=== PATIENT | male | born 1940 | race Caucasian/White ===

== ENCOUNTER 2017-03-31 11:13 | Inpatient (IN) ==
--- NOTE | 2017-03-31 11:40 | Emergency Department Note ---
General Adult HPI - General Chief complaint: Weakness Stated complaint: Weight loss, fatigue, Nausea Time Seen by Provider: 03/31/17 11:19 Source: patient Mode of arrival: ambulatory Limitations: no limitations - History of Present Illness HPI Narrative: This patient has dementia and has been going downhill recently according to his son. His son moved back here from [place] to live with him. He did see Dr. Parker recently and had an abdominal CT scan that was unremarkable. Patient says she's had diarrhea for a month and has had 3 times this morning. We will try to collect a sample. Denies all other symptoms. He has blood pressure was a bit low here in the ER and his son doesn't think he's eating or drinking enough. - Related Data Home Medications Medication Instructions Recorded Confirmed cholecalciferol (vitamin D3) 1,000 1,000 unit PO QDAY cap 07/09/15 03/31/17 unit capsule cyanocobalamin (vit B-12) 1,000 1,000 mcg PO QDAY tab 07/09/15 03/31/17 mcg tablet diphenhydramine 25 mg capsule 50 mg PO QHS PRN cap 07/09/15 03/31/17 multivitamin tablet 1 tab PO QDAY tab 07/09/15 03/31/17 psyllium husk 3.4 gram/5.4 gram 1 packet PO PRN PRN 03/25/17 03/31/17 oral powder Donepezil [Aricept] 10 mg PO QAM 03/31/17 03/31/17 Resveratrol 200 mg PO HS 03/31/17 03/31/17 Tumeric 2 cap PO QAM 03/31/17 03/31/17 Previous Rx's Medication Instructions Recorded amlodipine 10 mg tablet 10 mg PO QPM #90 tab 12/18/16 atorvastatin 40 mg tablet 40 mg PO QDAY #90 tab 12/18/16 chlorthalidone 25 mg tablet 25 mg PO QDAY #90 tab 12/18/16 dabigatran etexilate 150 mg capsule 150 mg PO BID #90 cap 12/18/16 lisinopril 20 mg tablet 10 mg PO QDAY #90 tab 12/18/16 memantine 10 mg tablet 10 mg PO BID #180 tab 12/18/16 metoprolol tartrate 25 mg tablet 25 mg PO BID #180 tab 12/18/16 Allergies Allergy/AdvReac Type Severity Reaction Status Date / Time No Known Drug Allergies Allergy Verified 03/25/17 10:21 Review of Systems Constitutional: Denies: fever, chills Eyes: Denies: eye pain ENT ED: Denies: ear pain, throat pain Cardiovascular: Denies: chest pain, palpitations Respiratory: Denies: cough, dyspnea Gastrointestinal: Reports: nausea, vomiting, diarrhea. Denies: abdominal pain Genitourinary: Denies: urgency Musculoskeletal: Denies: back pain Integumentary: Denies: rash Past Medical History - Past Medical History Medical history: Reports: atrial fibrillation, CVA, dementia, hyperlipidemia, hypertension, other (myasthenia gravis) Physical Exam - General Limitations: no limitations General appearance: alert, in no apparent distress - Head Head exam: atraumatic - Eye Eye exam: Present: normal appearance - ENT ENT exam: normal exam - Neck Neck exam: Present: normal inspection - Chest Chest inspection: Present: normal inspection - Respiratory Respiratory exam: Present: normal lung sounds bilaterally - Cardiovascular Cardiovascular exam: Present: regular rate, normal rhythm, normal heart sounds - Abdominal Exam Abdominal exam: Present: soft. Absent: distention, tenderness, guarding - Neurological Exam Neurological exam: Present: alert - Psychiatric Psychiatric exam: Present: normal affect, normal mood - Skin Skin exam: Present: warm, dry, intact Course Vital Signs Temperature 97.5 F L 03/31/17 11:15 Pulse Rate 98 H 03/31/17 11:15 Respiratory Rate 20 03/31/17 11:15 Blood Pressure 81/46 03/31/17 11:15 Pulse Oximetry (%) 98 03/31/17 11:15 Temperature 97.5 F L 03/31/17 11:15 Pulse Rate 70 03/31/17 13:00 Respiratory Rate 23 03/31/17 13:00 Blood Pressure 106/52 03/31/17 13:00 Pulse Oximetry (%) 97 03/31/17 13:00 Medical Decision Making - [facility] Narrative Medical decision making narrative: This patient apparently suffered kidney injury due to his CT scan contrast yesterday. His creatinine has gone from 1.4-6.4. Dehydration probably has contributed to injury. He'll be admitted to telemetry Dr. Flynn with Dr. Lucas consulting, we will go ahead and give 80 mg of IV potassium at 10 mEq an hour - Lab Data Lab results reviewed: Yes I reviewed the patient's lab results. Result diagrams: 03/31/17 11:55 03/31/17 11:55 Lab Results 03/31/17 03/31/17 Range/Units 11:55 11:55 WBC 12.8 H (4.5-11.0) K/mcL RBC 5.36 (4.50-5.90) M/mcL Hgb 15.6 (13.5-16.5) g/dL Hct 47.0 (41.0-55.0) % MCV 87.7 (80.0-100.0) fL MCH 29.1 (26.0-34.0) pg MCHC 33.1 (31.0-36.0) g/dL RDW 15.6 H (11.5-14.5) % Plt Count 229 (140-440) K/mcL MPV 9.6 (7.4-10.4) fL Gran % 82.2 H (38.0-78.0) % Lymph % (Auto) 9.4 L (15.5-49.0) % Boyd % (Auto) 7.6 (1.0-12.0) % Eos % (Auto) 0.5 (0.0-7.0) % Baso % (Auto) 0.3 (0.0-2.0) % Gran # 10.5 H (1.8-8.0) K/mcL Lymph # 1.2 L (1.5-4.8) K/mcL Boyd # 1.0 H (0.1-0.9) K/mcL Eos # 0.1 (0.0-0.7) K/mcL Baso # 0 (0.0-0.3) K/mcL Sodium 140 (133-145) mmol/L Potassium 2.5 L* (3.3-5.1) mmol/L Chloride 97 (96-108) mmol/L Carbon Dioxide 19 L (22-30) mmol/L Anion Gap 24.0 H (8-16) BUN 69 H (8-23) mg/dl Creatinine 6.6 H* (0.7-1.2) mg/dl GFR Calculation 8 Glucose 101 (70-105) mg/dL Calcium 9.0 (8.6-10.4) mg/dl Total Bilirubin 0.4 (0.0-1.0) mg/dL AST 8 (0-37) U/l ALT 10 (0-40) U/l Alkaline Phosphatase 58 (39-117) U/L Total Protein 6.8 (5.9-8.4) gm/dL Albumin 4.1 (3.2-5.2) gm/dL Globulin 2.7 (2.2-3.7) gm/dL Albumin/Globulin Ratio 1.5 (1.0-2.3) Disposition Clinical Impression: Acute renal failure Disposition: Xfer As Inpt ([facility]) Condition: Fair Referrals: Amrit Parker MD [Primary Care Provider] - Time of Disposition: 14:25
[2017-03-31] MEDS ORDERED: 0.9 % SODIUM CHLORIDE 1,000 ML IV ONE ×2 (11:45→12:30)
[2017-03-31 12:18] LABS: Basophils # (Auto) 0 K/mcL (0.0-0.3); Basophils % (Auto) 0.3 % (0.0-2.0); Eosinophils # (Auto) 0.1 K/mcL (0.0-0.7); Eosinophils % (Auto) 0.5 % (0.0-7.0); Granulocytes % (Auto) 82.2 % (38.0-78.0); Lymphocytes # (Auto) 1.2 K/mcL (1.5-4.8); Lymphocytes % (Auto) 9.4 % (15.5-49.0); Mean Cell Volume 87.7 fL (80.0-100.0); Mean Corpuscular HGB Conc 33.1 g/dL (31.0-36.0); Mean Corpuscular Hemoglobin 29.1 pg (26.0-34.0); Monocytes % (Auto) 7.6 % (1.0-12.0); Platelet Count 229 K/mcL (140-440); RBC 5.36 M/mcL (4.50-5.90); Red Cell Distribution Width 15.6 % (11.5-14.5)
[2017-03-31 13:22] LABS: ALT/SGPT 10 U/l (0-40); Albumin 4.1 gm/dL (3.2-5.2); Albumin/Globulin Ratio 1.5 (1.0-2.3); Alkaline Phosphatase 58 U/L (39-117); Blood Urea Nitrogen 69 mg/dl (8-23)
[2017-03-31] MEDS ORDERED: POTASSIUM CHLORIDE 80 MEQ in DEXTROSE 5% IN WATER 1,000 ML IV ONE (14:20)
[2017-03-31] MEDS ORDERED: 0.9 % SODIUM CHLORIDE 1,000 ML IV SCH (15:15)
[2017-03-31] MEDS ORDERED: ACETAMINOPHEN 1,000 MG/100 ML BOTTLE IV PRN (15:55)
[2017-03-31] MEDS ORDERED: POTASSIUM CHLORIDE 40 MEQ in DEXTROSE 5% IN WATER 500 ML IV PRN (15:55)
[2017-03-31] MEDS ORDERED: ACETAMINOPHEN 325 MG TABLET PO PRN (15:55)
[2017-03-31] MEDS ORDERED: LACTATED RINGERS 1,000 ML IV SCH (15:55)
[2017-03-31] MEDS ORDERED: POTASSIUM CHLORIDE 20 MEQ PACKET PO PRN (15:55)
[2017-03-31] MEDS ORDERED: ONDANSETRON 4 MG/2 ML VIAL IV PRN (15:55)
--- NOTE | 2017-03-31 17:43 | Nephrology Consult Note ---
History of Present Illness - Reason for Consult Patient information: Note initiated : 03/31/17 at 5:40 pm Service Date, if different from initiated Date: [] Patient: Aubrey Donohue a 76 y/o M admitted on 03/31/17 for Weight loss, fatigue , Nausea. Chief Complaint: [] Consult date: 03/31/17 acute renal failure Requesting physician: Alex Linares - Chief Complaint weakness - History of Present Illness Mr Donohue is a 76 y/o pleasant white male with PMH of HTN, dyslipidemia, CVA and other medical issues who is admitted with acute renal failure Patient was brought to the ED by his son today because the patient was getting weak, was having recurrent falls and also had vomiting 1-2 times since yesterday Patient has not been feeling well for the last one month or more. He has been having watery diarrhea 2-3 times or even more at times. He has lost more than 25 lbs in a month He saw his PCP for this and had CT abdomen with contrast done yesterday to r/o pancreatic cancer given his ongoing diarrhea. Patient also c/o having poor urinary stream and he does not recollect if he has had any urinary output since yesterday He denies abdominal pain, he denies nausea until yesterday He denies fever No c/o SOB, CP He denies using any NSAIDS he has had no recent travel, no use of antibiotics in the recent past His son was out of town for a month, his son thinks that the patient may not be eating appropriately or even eating stale food at times Review of Systems All systems PM: reviewed and no additional remarkable complaints except as stated (as in HPI) Past History Past medical history: HTN on amlodipine, metoprolol, lisinopril nd chlorthalidone dyslipidemia CVA has residual deficits from this in the form of some loss of vision and amnesia h/o myasthenia gravis s/p thymectomy patent foramen ovale Afib dementia Past surgical history: h/o thymectomy h/o implanted metallic device Past family history: mother had h/o malignant neoplasm in colon Past social history: smokes a little less than a pack of cigarettes every day drink occasionally no h/o drug abuse lives alone, his son lives less than a mile away Medications and Allergies Home Medications Medication Instructions Recorded Confirmed Type cholecalciferol (vitamin D3) 1,000 1,000 unit PO QDAY cap 07/09/15 03/31/17 History unit capsule cyanocobalamin (vit B-12) 1,000 1,000 mcg PO QDAY tab 07/09/15 03/31/17 History mcg tablet diphenhydramine 25 mg capsule 50 mg PO QHS PRN cap 07/09/15 03/31/17 History multivitamin tablet 1 tab PO QDAY tab 07/09/15 03/31/17 History amlodipine 10 mg tablet 10 mg PO QPM #90 tab 12/18/16 03/31/17 Rx atorvastatin 40 mg tablet 40 mg PO QDAY #90 tab 12/18/16 03/31/17 Rx chlorthalidone 25 mg tablet 25 mg PO QDAY #90 tab 12/18/16 03/31/17 Rx dabigatran etexilate 150 mg capsule 150 mg PO BID #90 cap 12/18/16 03/31/17 Rx lisinopril 20 mg tablet 10 mg PO QDAY #90 tab 12/18/16 03/31/17 Rx memantine 10 mg tablet 10 mg PO BID #180 tab 12/18/16 03/31/17 Rx metoprolol tartrate 25 mg tablet 25 mg PO BID #180 tab 12/18/16 03/31/17 Rx psyllium husk 3.4 gram/5.4 gram 1 packet PO PRN PRN 03/25/17 03/31/17 History oral powder Donepezil [Aricept] 10 mg PO QAM 03/31/17 03/31/17 History Potassium Chloride [Klor-Con 10] 10 meq PO DAILY 03/31/17 03/31/17 History Resveratrol 200 mg PO HS 03/31/17 03/31/17 History Tumeric 2 cap PO QAM 03/31/17 03/31/17 History Allergies Allergy/AdvReac Type Severity Reaction Status Date / Time No Known Drug Allergies Allergy Verified 03/25/17 10:21 Exam - Vital Signs Vital signs: Temp Pulse Resp BP Pulse Ox 97.5 F L 72 18 119/60 97 03/31/17 11:15 03/31/17 15:31 03/31/17 15:31 03/31/17 15:31 03/31/17 15:31 - General Appearance General appearance: appears started age, chronically ill EENT: mucous membranes dry Neck: no JVD Respiratory: clear Cardiology: no rub, no edema, normal S1, normal S2 Gastrointestinal: no tenderness, no guarding Integumentary: no rash Neurologic: no asterixis, alert and oriented x3 Musculoskeletal: no erythema, no cyanosis Psychiatric: mood/affect appropriate Results - Lab Results 03/31/17 11:55 03/31/17 14:00 Most recent lab results Calcium 9.0 mg/dl (8.6-10.4) 03/31/17 11:55 Assessment and Plan (1) Acute renal failure most recent s.creatinine is 6.6, BUN is 69 s.creatinine at baseline 1.0-1.1, was 1.4 on 03/11 and now 6.6 unclear if he had any urine output in ED, pt cannot tell He has mild acidosis and severe hypokalemia ct abdomen done yesterday revealed no renal issues Patient clinically is profoundly volume depleted with low normal BP (was hypotension at presentation) His MALENA is likely result of ATN from dehydration, hypotension use of ACEI, diuretics and contrast exposure yesterday Will continue with IVF, normal saline at 125cc/hour will replete potassium cautiously with careful monitoring until patient starts making urine as risk of hyperkalemia will hold off on all antihypertensive for now to keep MAP above 65 and preferably systolic above 110 will obtain urinary studies, hep panel, serum and urine UPEP will need work up for diarrhea as this seems to be underlying etiology for his current medical issues please place [place] cath for monitoring of urine output monitor i/o, renal function, vital signs closely recheck labs later tonight no urgent indication for dialysis will follow closely for the need of the same Discussed patient's renal issue with the pt and his son at length Thank you for giving me an opportunity to participate in Mr Donohue's medical care , appreciate it Status: Acute
--- NOTE | 2017-03-31 18:02 | Ultrasound Report ---
CLINICAL INFORMATION: Acute renal failure TECHNIQUE: Grayscale and color flow spectral imaging COMPARISON: Previous CT scan dated 03/30/2017 FINDINGS: Right kidney measures 10.3 x 6.8 x 6.3 cm. No solid or cystic mass. No hydronephrosis. No detectable calculi. Right renal cortex appears echogenic,. No focal abnormality. Left kidney measures 10.4 x 4.6 x 4.9 cm. Solid or cystic mass. No hydronephrosis. No calculi. Left renal cortex appears somewhat echogenic. Urinary bladder is not well visualized. Prevoid bladder volume measures 47 mL. Patient was unable to void. No detectable calculus. IMPRESSION: 1. No solid or cystic renal mass. No hydronephrosis 2. Renal parenchyma somewhat echogenic bilaterally. Interpreted and Authenticated by: Toni Lawrence 03/31/17
[2017-03-31] MEDS: 0.9 % SODIUM CHLORIDE 1,000 ML IV SCH (18:06)
--- NOTE | 2017-03-31 20:05 | History and Physical Report ---
DATE OF ADMISSION: 03/31/2017 DATE OF ADMISSION: 03/31/2017 REASON FOR ADMISSION: Persistent diarrhea and renal failure. PRIMARY CARE PHYSICIAN: Amrit Parker MD CONSULTING [employer] SALES REPRESENTATIVE: Shayy MAURO HISTORY OF CHIEF COMPLAINT: Aubrey is a 76-year-old who was brought into [facility] ER by his son after he has been experiencing relentless diarrhea over the last 5 weeks or so. The patient has lost a significant amount of weight, over 25 pounds. The patient endorses watery loose stools, multiple episodes, up to 5 a day, with significant associated dehydration, weakness, fatigue and loss of functionality. The patient denies abdominal pain, fever, cramps, bloody stool, change in stool caliber, associated mucus, sick contacts. He further denies community feast, travel to third world countries. He denies prior similar events. He also denies use of laxatives. In light of above symptoms, the patient was evaluated by primary care physician and underwent CT scan of the abdomen the day prior to admission. This did not have any significant findings. Initial workup in the ER was significant for creatinine over 6 and low potassium at 2.5. The patient was started on potassium replacement. Nephrology was consulted. Hospitalist Service was requested for admission. At the time of examination, the patient is alert, oriented. He is accompanied with his son who recently moved from [place] and is currently helping him out. The patient was able to answer most of the questions as above. He denies chest pain, headache, or photophobia. He denies new onset of joint pain, swelling, rash, hives. He denies heat or cold intolerance, tremors. He is recovering from CVA in 2014 and has minimal residual deficits. PAST MEDICAL HISTORY: 1. Hypertension. 2. Atrial fibrillation. 3. History of CVA, currently on anticoagulation on dabigatran. 4. Hyperlipidemia. 5. Dementia. CURRENT MEDICATIONS: Metoprolol 25. Memantine 10. Lisinopril 10. Dabigatran 150 twice daily. Chlorthalidone 25. Atorvastatin 40. Amlodipine 10. ALLERGIES: None significant. SOCIAL HISTORY: The patient lives fairly independently with his son who recently moved in town from [place]. Quit smoking a while ago. Occasional alcohol. No substance abuse. He is a retired qualified craft worker electrician. He is . FAMILY HISTORY: Nonrelevant given advanced age. PHYSICAL EXAMINATION: GENERAL: The patient is alert, feels fatigued, anxious. BMI 22.2, height 6 feet. VITAL SIGNS: Blood pressure, respiration rate 14, temperature 97.1, pulse 72, saturation 96 percent on room air. HEENT: Pupils symmetric. Oral cavity dry. No ear or nose discharge. Head is normocephalic and atraumatic. NECK: No lymphadenopathy. HEART: S1, S2, regular rhythm. No murmur appreciated. CHEST: Clear to auscultation. ABDOMEN: Soft, scaphoid. No organomegaly. Nontender. LOWER EXTREMITIES: No cyanosis or clubbing. No joint swelling. SKIN: No suspicious lesion. Dry skin with loss of skin turgor. PSYCHIATRIC: Alert and cooperative. NEURO: Nonfocal, moving all four extremities. LABS AND IMAGING: White count 12.8, hemoglobin 15.6, platelets 229. Sodium 140, potassium 2.5, creatinine 6.6, BUN 69. LFTs unremarkable. CT abdomen as of 03/30: Normal pancreas, multiple low density in the liver, otherwise nonsignificant findings. ASSESSMENT AND PLAN: A 76-year-old admitted with relentless diarrhea over the last 1 month, admitted with acute renal failure. 1. Acute renal failure, likely a combination of ischemic and toxic acute tubular necrosis. Management will be as per nephrology. 2. Critical hypokalemia. Continue replacement with serial BMP checks. 3. Diarrhea, appears chronic over the last 5 weeks. The patient will undergo multiple studies including stool cultures, along with stool osmolality. Will evaluate for malabsorption syndrome with fecal fat. Tissue transglutaminase to rule out celiac and further testing for infectious virus including norovirus. Clostridium difficile has been negative. 4. Other prior medical issues include history of hypertension. Hold ZOË inhibitor in light of renal failure. Continue amlodipine once systolics over 140. 5. History of atrial fibrillation, currently in sinus. 6. Anticoagulation for cerebrovascular accident prophylaxis. Hold dabigatran in light of renal failure. 7. Hyperlipidemia. Continue statin. 8. History of dementia. Continue donepezil. PLAN: 1. Admit as inpatient telemetry. 2. Nephrology consultation. 3. Crystalloids. 4. Stool studies as above. 5. Potassium replacement. AA:laura Job ID: [id number] Doc ID: [id number] Cruzito Apple MD [facility]
[2017-03-31] MEDS ORDERED: METOPROLOL TARTRATE 25 MG TABLET PO SCH (21:00)
[2017-03-31] MEDS ORDERED: amLODIPine 10 MG TABLET PO SCH (21:00)
[2017-03-31] MEDS ORDERED: DABIGATRAN ETEXILATE MESYLATE 150 MG CAPSULE PO SCH (21:00)
[2017-03-31] MEDS: MEMANTINE 10 MG TABLET PO SCH (21:05)
[2017-03-31 21:06] LABS: Ionized Calcium 1.06 mmol/L (1.16-1.32)
[2017-03-31] MEDS: SENNOSIDES/DOCUSATE SODIUM 1 TAB TABLET PO SCH (21:06)
[2017-03-31] MEDS: 0.9 % SODIUM CHLORIDE 10 ML SYRINGE IV SCH (21:07)
[2017-03-31 21:22] LABS: Blood Urea Nitrogen 62 mg/dl (8-23)
[2017-03-31] MEDS ORDERED: POTASSIUM CHLORIDE 20 MEQ TABLET PO ONE (22:02)
[2017-03-31] MEDS ORDERED: POTASSIUM CHLORIDE 20 MEQ PACKET ONE (22:10)
[2017-04-01 04:39] LABS: Mean Cell Volume 87.3 fL (80.0-100.0); Mean Corpuscular Hemoglobin 29.7 pg (26.0-34.0); Platelet Count 181 K/mcL (140-440); RBC 4.71 M/mcL (4.50-5.90); Red Cell Distribution Width 15.5 % (11.5-14.5)
[2017-04-01 04:42] LABS: ALT/SGPT 8 U/l (0-40); Albumin 3.3 gm/dL (3.2-5.2); Albumin/Globulin Ratio 1.4 (1.0-2.3); Alkaline Phosphatase 46 U/L (39-117); Bilirubin,Direct < 0.2 mg/dL (0.0-0.3); Blood Urea Nitrogen 54 mg/dl (8-23); Gamma Glutamyl Transpeptidase 15 U/L (8-61); Uric Acid 15.4 mg/dL (2.5-8.0)
[2017-04-01] MEDS ORDERED: POTASSIUM CHLORIDE 20 MEQ in DEXTROSE 5% IN WATER 250 ML IV ONE (05:00)
[2017-04-01] MEDS ORDERED: POTASSIUM CHLORIDE 20 MEQ/10 ML VIAL IV ONE (05:05)
[2017-04-01] MEDS: 0.9 % SODIUM CHLORIDE 10 ML SYRINGE IV SCH ×3 (05:14→21:03)
[2017-04-01 05:21] LABS: Acanthocytes FEW (NONE SEEN); Eosinophils % (Manual) 3 % (0-7); Lymphocytes % 17 % (15-49); Monocytes % (Manual) 10 % (1-12); Platelet Estimate NORMAL (NORMAL); RBC Morphology ABNORM (NORMAL); Segmented Neutrophils % 69 % (38-78)
[2017-04-01] MEDS: 0.9 % SODIUM CHLORIDE 1,000 ML IV SCH ×2 (07:19)
[2017-04-01] MEDS: MEMANTINE 10 MG TABLET PO SCH ×2 (08:16→21:02)
[2017-04-01] MEDS: ATORVASTATIN 20 MG TABLET PO SCH (08:16)
[2017-04-01] MEDS: DONEPEZIL 10 MG TABLET PO SCH (08:16)
[2017-04-01] MEDS: MULTIVIT,THER IRON,CA,FA & MIN 1 TABLET PO SCH (08:16)
[2017-04-01 10:28] LABS: Appearance,Urine HAZY; Bacteria,Urine 0 /hpf (0); Bilirubin,Urine NEG (NEG); Color,Urine YELLOW; Glucose,Urine (UA) NEGATIVE (NEG); Leukocyte Esterase,Urine NEG /uL (NEG); Mucus,Urine FEW /hpf (0); Nitrate,Urine NEG (NEG); Protein,Urine NEG (NEG); Specific Gravity,Urine 1.014 (1.000-1.035); Uric Acid Crystals,Urine FEW /hpf (0); Urine Blood 0.03 mg/dL (<0.03); Urine Granular Cast 1 /lpf (0); Urine Hyaline Cast 5 /lpf (0-2); Urine RBC 3 /hpf (0-1); Urine Squamous Epithelial Cell 0 /hpf (0-4); Urine WBC 1 /hpf (0-4); Urobilinogen,Urine NEG (NEG)
--- NOTE | 2017-04-01 10:29 | Internal Med Progress Note ---
Medical - PN: Subj Patient information: Note initiated : 04/01/17 at 10:25 am Service Date, if different from initiated Date: [] Patient: Aubrey Donohue 76 y/o M admitted on 03/31/17 for Weight Loss,Fatigue, Nausea/Renal Failure, Diarrhea. Chief Complaint: [] Interval history: 03/31- patient admitted with acute renal failure secondary to combination of volume depletion and contrast-induced nephropathy. Creatinine 6. 6 potassium 2.5. Admitted to telemetry. continue aggressive crystalloids and electrolyte replacement. Renal ultrasound pending. Nephrology consulted. 04/01- creatinine down from 6.6 to 3.5. Potassium improved 2.9. Good urine output over 1700 cc since admission. patient feels a lot better. Case discussed with nephrology and patient's primary care physician Dr. Amrit Baker. afebrile with stable hemodynamics. Extensive stool testing pending including fecal fat/transglutaminase antibody/osmolarity. patient will require outpatient colonoscopy. 3 episodes of loose stools since morning - Constitutional Vitals: Vital Signs Temp Pulse Resp BP Pulse Ox 96.8 F L 60 16 125/56 94 04/01/17 06:22 04/01/17 03:36 04/01/17 06:22 04/01/17 06:22 04/01/17 06:22 Period Temp Pulse Resp BP Sys/[place] Pulse Ox Last 24 Hr 96.8 F-97.6 F 60-75 14-18 104-125/54-63 94-97 Intake and Output 03/31/17 04/01/17 04/01/17 21:59 05:59 13:59 Intake Total 1558 / 1558 1215 / 1215 Output Total 250 / 250 1000 / 1000 525 / 525 Balance -250 / 90 558 / 558 690 / 690 Weight 164 lb 3.2 oz Intake & Output: Intake & Output 03/31/17 04/01/17 04/01/17 21:59 05:59 13:59 Intake Total 1558 / 1558 1215 / 1215 Output Total 250 / 250 1000 / 1000 525 / 525 Balance -250 / 90 558 / 558 690 / 690 Weight 164 lb 3.2 oz Intake: IV 1258 / 1258 915 / 915 Sodium Chloride 0.9% 1, 738 / 738 915 / 915 000 ml @ 125 mls/hr IV . Q8H [facility] Rx#:[id number] Potassium Chloride 40 Meq 520 / 520 In Dextrose 5% in Water 500 ml @ 130 mls/hr IV UD PRN Rx#:[id number] Oral 300 / 300 300 / 300 Output: Urine Catheter Amount 1000 / 1000 75 / 75 Void Amount 100 / 100 450 / 450 Stool 150 / 150 Other: Meal Breakfast Percent of Meal Consumed 100% # Bowel Movements 1 1 1 General appearance: cooperative, no acute distress Exam: alert oriented Minimal cognitive dextrose with thought block nonlabored breathing Foleys draining clear urine No anxiety Medical - PN: Obj Da - Labs CBC & Chem 7: 04/01/17 03:28 04/01/17 03:28 Labs: Abnormal Lab Results 04/01/17 04/01/17 03/31/17 03:28 03:28 20:15 WBC 11.1 H RDW 15.5 H RBC Morphology Abnorm A Acanthocytes (Spur) Few A RBC Fragments Few A Potassium 2.9 L* 2.7 L* Carbon Dioxide 19 L 17 L Anion Gap 20.0 H BUN 54 H 62 H Creatinine 3.5 H 5.2 H* Uric Acid 15.4 H Calcium 7.8 L Ionized Calcium Tia 1.06 L Total Protein 5.6 L Triglycerides 153 H Meds: Medications Acetaminophen (Tylenol) 650 mg PO Q4-6HP PRN PRN Reason: PAIN/FEVER > 101 Atorvastatin Calcium (Lipitor) 40 mg PO DAILY [facility] Last Admin: 04/01/17 08:16 Dose: 40 mg Donepezil HCl (Aricept) 10 mg PO QAM [facility] Last Admin: 04/01/17 08:16 Dose: 10 mg Potassium Chloride 40 meq/ (Dextrose) 520 mls @ 130 mls/hr IV UD PRN PRN Reason: K+ = or < 3.5 Last Infusion: 03/31/17 22:45 Dose: Infused Magnesium Sulfate (Magnesium Sulfate) 2 gm in 50 mls @ 50 mls/hr IV UD PRN PRN Reason: MG = or < 1.7 Acetaminophen (Ofirmev) 1,000 mg in 100 mls @ 200 mls/hr IV Q6HP PRN PRN Reason: PAIN/FEVER > 101 Sodium Chloride (Sodium Chloride 0.9%) 1,000 mls @ 125 mls/hr IV .Q8H [facility] Last Admin: 04/01/17 07:19 Dose: 125 mls/hr Iron Carb/Multivit/Metal Work Duct Installer/Folic Acid (Multivitamin W/Minerals) 1 tab PO DAILY [facility] Last Admin: 04/01/17 08:16 Dose: 1 tab Memantine (Namenda) 5 mg PO BID [facility] Last Admin: 04/01/17 08:16 Dose: 5 mg Ondansetron HCl (Zofran) 4 mg IV Q4-6HP PRN PRN Reason: Nausea And Vomiting Potassium Chloride (Klor-Con) 40 meq PO DAILYP PRN PRN Reason: K+ < 3.5 Senna/Docusate Sodium (Senna Plus Tablet) 1 tab PO HS [facility] Last Admin: 03/31/17 21:06 Dose: Not Given Sodium Chloride (Saline Flush) 10 ml IV Q8 [facility] Last Admin: 04/01/17 05:14 Dose: Not Given Medical - PN: A/P - Time Spent With Patient Total time spent is greater than 50% in coordination of care (as documented) at patient's floor/unit and/or counseling patient: 25 - 35 minutes (1) Acute renal failure Status: Acute Assessment and plan: * acute renal failure- combination of volume depletion/FRANCES leading to ischemic/ toxic ATN. Management per nephrology. Creatinine down from 6.6-3.5. Nonoliguric. Renal ultrasound no evidence of obstructive uropathy. Normal parenchyma. * critical hypokalemia- improving with replacement. Potassium 2.9. Continue telemetry monitoring * persistent diarrhea- evaluate for chronic diarrhea including secretory versus osmotic. * history of hypertension-continue amlodipine,metoprolol hold chlorthalidone/ ZOË inhibitor. * hyperlipemia and statin * History of dementia and donepezil * History of CVA - Held anticoagulation in light of renal failure. continue statin plan * Continue aggressive electrolyte replacement * hold Chlorthalidone/ZOË inhibitor * restart anticoagulation in 24 hours or once creatinine less than 2 * diarrhea workup * Colonoscopy Current Visit: Yes
[2017-04-01 13:29] LABS: Blood Urea Nitrogen 46 mg/dl (8-23)
--- NOTE | 2017-04-01 13:53 | Nephrology Progress Note ---
Subjective Patient information: Note initiated : 04/01/17 at 1:50 pm Service Date, if different from initiated Date: [] Patient: Aubrey Donohue 76 y/o M admitted on 03/31/17 for Weight Loss,Fatigue, Nausea/Renal Failure, Diarrhea. Chief Complaint: [diarrhea] Principal diagnosis: acute renal failure Interval history: Patient with no new complaints feels better still has diarrhea, not tolerating any po intake as has loose water stools every time he eats His urine output has improved with IV fluids and his renal function is improving He denies SOB, CP, dizziness He has no edema He has [place] cath now he remains hypokalemic Pertinent ROS: as above Objective - Vital Signs Vital signs: Vital Signs Temp Pulse Resp BP BP Pulse Ox 04/01/17 11:33 97.6 F 20 121/58 97 04/01/17 06:22 96.8 F L 16 125/56 94 04/01/17 03:36 97.6 F 60 14 118/63 96 04/01/17 00:00 97.6 F 63 14 105/56 94 03/31/17 20:00 97.6 F 65 16 119/54 97 03/31/17 15:55 97.1 F L 75 18 104/62 96 Intake and Output 03/31/17 04/01/17 04/01/17 21:59 05:59 13:59 Intake Total 1558 / 1558 1215 / 1215 Output Total 250 / 250 1000 / 1000 525 / 525 Balance -250 / 90 558 / 558 690 / 690 Intake: IV 1258 / 1258 915 / 915 Sodium Chloride 0.9% 1, 738 / 738 915 / 915 000 ml @ 125 mls/hr IV . Q8H [facility] Rx#:[id number] Potassium Chloride 40 Meq 520 / 520 In Dextrose 5% in Water 500 ml @ 130 mls/hr IV UD PRN Rx#:[id number] Oral 300 / 300 300 / 300 Output: Urine Catheter Amount 1000 / 1000 75 / 75 Void Amount 100 / 100 450 / 450 Stool 150 / 150 Other: Meal Breakfast Percent of Meal Consumed 100% # Bowel Movements 1 1 1 Weight 164 lb 3.2 oz 164 lb 3.2 oz Patient Weight 04/02/17 05:59 Weight 164 lb 3.2 oz Intake & Output: Intake & Output 03/31/17 04/01/17 04/01/17 21:59 05:59 13:59 Intake Total 1558 / 1558 1215 / 1215 Output Total 250 / 250 1000 / 1000 525 / 525 Balance -250 / 90 558 / 558 690 / 690 Weight 164 lb 3.2 oz 164 lb 3.2 oz Intake: IV 1258 / 1258 915 / 915 Sodium Chloride 0.9% 1, 738 / 738 915 / 915 000 ml @ 125 mls/hr IV . Q8H [facility] Rx#:[id number] Potassium Chloride 40 Meq 520 / 520 In Dextrose 5% in Water 500 ml @ 130 mls/hr IV UD PRN Rx#:[id number] Oral 300 / 300 300 / 300 Output: Urine Catheter Amount 1000 / 1000 75 / 75 Void Amount 100 / 100 450 / 450 Stool 150 / 150 Other: Meal Breakfast Percent of Meal Consumed 100% # Bowel Movements 1 1 1 - General Appearance General appearance: appears started age, frail EENT: mucous membranes moist Neck: no JVD Respiratory: clear Cardiology: no rub, normal S1, normal S2 Gastrointestinal: no tenderness, no guarding Integumentary: warm and dry Neurologic: alert and oriented x3 Musculoskeletal: no erythema, no cyanosis Psychiatric: mood/affect appropriate - Lab 04/01/17 03:28 04/01/17 11:20 Most recent lab results Calcium 7.9 mg/dl (8.6-10.4) L 04/01/17 11:20 Phosphorus 3.7 mg/dL (2.7-4.5) 04/01/17 03:28 Magnesium 2.0 mg/dL (1.6-2.5) 04/01/17 03:28 Assessment and Plan (1) Acute renal failure Patient with acute renal failure likely from ATN from severe dehydration, hypotension, use of ACEI and diuretics and also contrast exposure s.creatinine down to 2.5 UA with hyaline casts renal US with no obstruction good urinary output with improving renal function Hypokalemia severe from poor po intake, diarrhea and also renal loss as was on chlorthalidone cannot tolerate po potassium supplement patient getting continuous K replacement with careful monitoring of labs will continue with aggressive K replacement diarrhea: work up ongoing may need GI consult Will follow Thank you for giving me an opportunity to participate in Mr Donohue's medical care , appreciate it Status: Acute
[2017-04-01] MEDS ORDERED: POTASSIUM CHLORIDE 40 MEQ in 0.9 % SODIUM CHLORIDE 500 ML IV ONE (13:56)
[2017-04-01] MEDS: NACL 0.9% W/KCL 20MEQ 1,000 ML IV SCH ×2 (14:56→22:39)
[2017-04-01] MEDS: LOPERAMIDE 2 MG CAPSULE PO PRN ×2 (14:56→16:52)
[2017-04-01 19:20] LABS: Blood Urea Nitrogen 38 mg/dl (8-23)
[2017-04-01] MEDS: SENNOSIDES/DOCUSATE SODIUM 1 TAB TABLET PO SCH (21:03)
[2017-04-02] MEDS: 0.9 % SODIUM CHLORIDE 10 ML SYRINGE IV SCH ×2 (05:47→15:48)
[2017-04-02 05:48] LABS: Mean Cell Volume 88.2 fL (80.0-100.0); Mean Corpuscular HGB Conc 33.7 g/dL (31.0-36.0); Mean Corpuscular Hemoglobin 29.8 pg (26.0-34.0); Platelet Count 154 K/mcL (140-440); Red Cell Distribution Width 15.2 % (11.5-14.5)
[2017-04-02 06:09] LABS: ALT/SGPT 7 U/l (0-40); Albumin 3.2 gm/dL (3.2-5.2); Albumin/Globulin Ratio 1.5 (1.0-2.3); Alkaline Phosphatase 41 U/L (39-117); Bilirubin,Direct < 0.2 mg/dL (0.0-0.3); Blood Urea Nitrogen 27 mg/dl (8-23); Gamma Glutamyl Transpeptidase 13 U/L (8-61); Magnesium 1.6 mg/dL (1.6-2.5); Uric Acid 10.8 mg/dL (2.5-8.0)
[2017-04-02 06:35] LABS: Eosinophils % (Manual) 2 % (0-7); Lymphocytes % 13 % (15-49); Monocytes % (Manual) 7 % (1-12); Platelet Estimate NORMAL (NORMAL); RBC Morphology ABNORM (NORMAL); Segmented Neutrophils % 78 % (38-78)
[2017-04-02] MEDS ORDERED: POTASSIUM CHLORIDE 20 MEQ/10 ML VIAL IV ONE (06:38)
[2017-04-02] MEDS: NACL 0.9% W/KCL 20MEQ 1,000 ML IV SCH ×2 (07:03→16:47)
[2017-04-02] MEDS: ATORVASTATIN 20 MG TABLET PO SCH (08:32)
[2017-04-02] MEDS: MEMANTINE 10 MG TABLET PO SCH ×2 (08:35→22:37)
[2017-04-02] MEDS: DONEPEZIL 10 MG TABLET PO SCH (08:35)
[2017-04-02] MEDS: MULTIVIT,THER IRON,CA,FA & MIN 1 TABLET PO SCH (08:35)
[2017-04-02] MEDS: DABIGATRAN ETEXILATE MESYLATE 75 MG CAPSULE PO SCH ×2 (08:39→22:37)
[2017-04-02] MEDS ORDERED: POTASSIUM CHLORIDE 40 MEQ in DEXTROSE 5% IN WATER 500 ML IV PRN (09:26)
[2017-04-02] MEDS ORDERED: POTASSIUM CHLORIDE 20 MEQ in DEXTROSE 5% IN WATER 250 ML IV ONE (09:30)
[2017-04-02] MEDS ORDERED: MAGNESIUM SULFATE 2 GM/50 ML BAG IV PRN (10:42)
--- NOTE | 2017-04-02 10:43 | Internal Med Progress Note ---
Medical - PN: Subj Patient information: Note initiated : 04/02/17 at 10:41 am Service Date, if different from initiated Date: [] Patient: Aubrey Donohue 76 y/o M admitted on 03/31/17 for Weight Loss,Fatigue, Nausea/Renal Failure, Diarrhea. Chief Complaint: [] Interval history: 03/31- patient admitted with acute renal failure secondary to combination of volume depletion and contrast-induced nephropathy. Creatinine 6. 6 potassium 2.5. Admitted to telemetry. continue aggressive crystalloids and electrolyte replacement. Renal ultrasound pending. Nephrology consulted. 04/01- creatinine down from 6.6 to 3.5. Potassium improved 2.9. Good urine output over 1700 cc since admission. patient feels a lot better. Case discussed with nephrology and patient's primary care physician Dr. Amrit Baker. afebrile with stable hemodynamics. Extensive stool testing pending including fecal fat/transglutaminase antibody/osmolarity. patient will require outpatient colonoscopy. 3 episodes of loose stools since morning 04/02- creatinine 1.5. GI consult for colonoscopy. Potassium persistently low at 2.9 on replacement. Nephrology signing off. continue clears. Runs of V. tach last night. Continue telemetry monitoring. replace magnesium and oral potassium. - Constitutional Vitals: Vital Signs Temp Pulse Resp BP Pulse Ox 98.1 F 72 18 145/67 93 04/02/17 06:40 04/02/17 07:20 04/02/17 07:20 04/02/17 06:40 04/02/17 07:20 Period Temp Pulse Resp BP Sys/[place] Pulse Ox Last 24 Hr 97.6 F-98.5 F 65-72 17-20 118-145/58-67 91-99 Intake and Output 04/01/17 04/02/17 04/02/17 21:59 05:59 13:59 Intake Total 570 / 570 965 / 965 1120 / 1120 Output Total 425 / 425 1825 / 1825 775 / 775 Balance 145 / 145 -860 / -860 345 / 345 Weight 170 lb 8 oz Intake & Output: Intake & Output 04/01/17 04/02/17 04/02/17 21:59 05:59 13:59 Intake Total 570 / 570 965 / 965 1120 / 1120 Output Total 425 / 425 1825 / 1825 775 / 775 Balance 145 / 145 -860 / -860 345 / 345 Weight 170 lb 8 oz Intake: IV 965 / 965 1000 / 1000 NaCl 0.9% W/KCl 20Meq 965 / 965 1000 / 1000 1000ML 1,000 ml @ 125 mls /hr IV .Q8H [facility] Rx#: [id number] Oral 570 / 570 120 / 120 Output: Urine Catheter Amount 1825 / 1825 775 / 775 Void Amount 425 / 425 Other: Meal Dinner Breakfast Percent of Meal Consumed 75% 100% Feeding Ability Assist with Tray Set Up Independent # Bowel Movements 1 1 General appearance: cooperative, no acute distress Exam: anxious nonlabored breathing Foleys draining clear urine Nondistended Medical - PN: Obj Da - Labs CBC & Chem 7: 04/02/17 04:30 04/02/17 04:30 Labs: Abnormal Lab Results 04/02/17 04/02/17 04/01/17 04:30 04:30 18:30 WBC RBC 4.30 L Hgb 12.8 L Hct 38.0 L RDW 15.2 H Lymphocytes % 13 L RBC Morphology Abnorm A Acanthocytes (Spur) RBC Fragments Few A Potassium 2.9 L* 3.1 L Chloride 112 H 111 H Carbon Dioxide 19 L 20 L Anion Gap BUN 27 H 38 H Creatinine 1.5 H 1.7 H Glucose 137 H Uric Acid 10.8 H Calcium 7.8 L 7.9 L Ionized Calcium Tia Phosphorus 1.4 L Total Protein 5.4 L Total Protein (PEP) 5.2 L Triglycerides Urine Occult Blood Urine RBC Uric Acid Crystals Hyaline Casts Granular Casts 04/01/17 04/01/17 04/01/17 11:20 09:31 03:28 WBC RBC Hgb Hct RDW Lymphocytes % RBC Morphology Acanthocytes (Spur) RBC Fragments Potassium 2.7 L* 2.9 L* Chloride 111 H Carbon Dioxide 19 L 19 L Anion Gap BUN 46 H 54 H Creatinine 2.5 H 3.5 H Glucose Uric Acid 15.4 H Calcium 7.9 L 7.8 L Ionized Calcium Tia Phosphorus Total Protein 5.6 L Total Protein (PEP) Triglycerides 153 H Urine Occult Blood 0.03 A Urine RBC 3 H Uric Acid Crystals Few A Hyaline Casts 5 H Granular Casts 1 H 04/01/17 03/31/17 03:28 20:15 WBC 11.1 H RBC Hgb Hct RDW 15.5 H Lymphocytes % RBC Morphology Abnorm A Acanthocytes (Spur) Few A RBC Fragments Few A Potassium 2.7 L* Chloride Carbon Dioxide 17 L Anion Gap 20.0 H BUN 62 H Creatinine 5.2 H* Glucose Uric Acid Calcium Ionized Calcium Tia 1.06 L Phosphorus Total Protein Total Protein (PEP) Triglycerides Urine Occult Blood Urine RBC Uric Acid Crystals Hyaline Casts Granular Casts Meds: Medications Acetaminophen (Tylenol) 650 mg PO Q4-6HP PRN PRN Reason: PAIN/FEVER > 101 Atorvastatin Calcium (Lipitor) 40 mg PO DAILY [facility] Last Admin: 04/02/17 08:32 Dose: 40 mg Dabigatran (Pradaxa) 150 mg PO BID [facility] Last Admin: 04/02/17 08:39 Dose: 150 mg Donepezil HCl (Aricept) 10 mg PO QAM [facility] Last Admin: 04/02/17 08:35 Dose: 10 mg Magnesium Sulfate (Magnesium Sulfate) 2 gm in 50 mls @ 50 mls/hr IV UD PRN PRN Reason: MG = or < 1.7 Acetaminophen (Ofirmev) 1,000 mg in 100 mls @ 200 mls/hr IV Q6HP PRN PRN Reason: PAIN/FEVER > 101 Potassium Chloride/Sodium Chloride (Nacl 0.9% W/Kcl 20meq 1000ml) 1,000 mls @ 125 mls/hr IV .Q8H [facility] Last Admin: 04/02/17 07:03 Dose: 125 mls/hr Potassium Chloride 20 meq/ (Dextrose) 260 mls @ 130 mls/hr IV ONCE ONE Stop: 04/02/17 11:29 Last Admin: 04/02/17 09:52 Dose: 130 mls/hr Potassium Chloride 40 meq/ (Dextrose) 520 mls @ 130 mls/hr IV UD PRN PRN Reason: K+ = or < 3.5 Iron Carb/Multivit/[place]/Folic Acid (Multivitamin W/Minerals) 1 tab PO DAILY [facility] Last Admin: 04/02/17 08:35 Dose: 1 tab Loperamide HCl (Imodium) 2 mg PO PRN PRN PRN Reason: Diarrhea Last Admin: 04/01/17 16:52 Dose: 2 mg Memantine (Namenda) 5 mg PO BID [facility] Last Admin: 04/02/17 08:35 Dose: 5 mg Ondansetron HCl (Zofran) 4 mg IV Q4-6HP PRN PRN Reason: Nausea And Vomiting Potassium Chloride (Klor-Con) 40 meq PO DAILYP PRN PRN Reason: K+ < 3.5 Last Admin: 04/02/17 06:56 Dose: 40 meq Senna/Docusate Sodium (Senna Plus Tablet) 1 tab PO HS [facility] Last Admin: 04/01/17 21:03 Dose: Not Given Sodium Chloride (Saline Flush) 10 ml IV Q8 [facility] Last Admin: 04/02/17 05:47 Dose: Not Given Medical - PN: A/P - Time Spent With Patient Total time spent is greater than 50% in coordination of care (as documented) at patient's floor/unit and/or counseling patient: 25 - 35 minutes (1) Acute renal failure Status: Acute Assessment and plan: * acute renal failure- combination of volume depletion/FRANCES leading to ischemic/ toxic ATN. clinical resolution noted. Creatinine 1.5. * critical hypokalemia- continue aggressive oral and IV replacement * persistent diarrhea- evaluate for chronic diarrhea . GI consulted * history of hypertension-continue amlodipine,metoprolol. held chlorthalidone/ ZOË inhibitor. * hyperlipemia and statin * History of dementia and donepezil * History of CVA - restart anticoagulation plan * Continue aggressive electrolyte and crystalloid replacement * hold Chlorthalidone/ZOË inhibitor * GI consult for colonoscopy * telemetry monitoring Current Visit: Yes
[2017-04-02] MEDS: MAGNESIUM SULFATE 2 GM/50 ML BAG IV PRN (11:43)
[2017-04-02] MEDS ORDERED: POTASSIUM PHOSPHATE 40 MEQ in DEXTROSE 5% IN WATER 500 ML IV ONE (13:09)
--- NOTE | 2017-04-02 13:41 | Nephrology Progress Note ---
Subjective Patient information: Note initiated : 04/02/17 at 1:13 pm Service Date, if different from initiated Date: [] Patient: Aubrey Donohue 76 y/o M admitted on 03/31/17 for Weight Loss,Fatigue, Nausea/Renal Failure, Diarrhea. Chief Complaint: [] Principal diagnosis: acute renal failure Interval history: no diarrhea since this am feels better no SOB, CP, dizziness No edema could walk down the [place] with the nurse yesterday Renal function is improving K still low Pertinent ROS: as above Objective - Vital Signs Vital signs: Vital Signs Temp Pulse Resp BP Pulse Ox 04/02/17 12:14 97.8 F 71 17 121/65 97 04/02/17 07:20 72 18 93 04/02/17 06:40 98.1 F 71 17 145/67 91 04/02/17 04:00 98.5 F 20 143/62 96 04/02/17 00:00 98.4 F 20 128/61 93 04/01/17 20:00 97.7 F 65 18 118/58 97 04/01/17 15:31 98.3 F 20 128/62 99 Intake and Output 04/01/17 04/02/17 04/02/17 21:59 05:59 13:59 Intake Total 570 / 570 965 / 965 2170 / 2170 Output Total 425 / 425 1825 / 1825 775 / 775 Balance 145 / 145 -860 / -860 1395 / 1395 Intake: IV 965 / 965 1050 / 1050 NaCl 0.9% W/KCl 20Meq 965 / 965 1000 / 1000 1000ML 1,000 ml @ 125 mls /hr IV .Q8H [facility] Rx#: [id number] Oral 570 / 570 1120 / 1120 Output: Urine Catheter Amount 1825 / 1825 775 / 775 Void Amount 425 / 425 Other: Meal Dinner Breakfast Percent of Meal Consumed 75% 100% Feeding Ability Assist with Tray Set Up Independent # Bowel Movements 1 1 Weight 170 lb 8 oz Intake & Output: Intake & Output 04/01/17 04/02/17 04/02/17 21:59 05:59 13:59 Intake Total 570 / 570 965 / 965 2170 / 2170 Output Total 425 / 425 1825 / 1825 775 / 775 Balance 145 / 145 -860 / -860 1395 / 1395 Weight 170 lb 8 oz Intake: IV 965 / 965 1050 / 1050 NaCl 0.9% W/KCl 20Meq 965 / 965 1000 / 1000 1000ML 1,000 ml @ 125 mls /hr IV .Q8H [facility] Rx#: [id number] Oral 570 / 570 1120 / 1120 Output: Urine Catheter Amount 1825 / 1825 775 / 775 Void Amount 425 / 425 Other: Meal Dinner Breakfast Percent of Meal Consumed 75% 100% Feeding Ability Assist with Tray Set Up Independent # Bowel Movements 1 1 - General Appearance General appearance: appears started age, frail EENT: mucous membranes moist Neck: no JVD Respiratory: clear Cardiology: no edema, normal S1, normal S2 Gastrointestinal: no tenderness, no guarding Integumentary: no rash, warm and dry Neurologic: alert and oriented x3 Musculoskeletal: no deformities, no erythema Psychiatric: mood/affect appropriate - Lab 04/02/17 04:30 04/02/17 04:30 Most recent lab results Calcium 7.8 mg/dl (8.6-10.4) L 04/02/17 04:30 Phosphorus 1.4 mg/dL (2.7-4.5) L 04/02/17 04:30 Magnesium 1.6 mg/dL (1.6-2.5) 04/02/17 04:30 Assessment and Plan (1) Acute renal failure Patient with acute renal failure likely from ATN from severe dehydration, hypotension, use of ACEI and diuretics and also contrast exposure s.creatinine down to 1.5 UA with hyaline casts renal US with no obstruction good urinary output with improving renal function Hypokalemia severe from poor po intake, diarrhea and also renal loss as was on chlorthalidone received IV and oral potassium continue aggressive replacement, should improve with improving oral intake and improved diarrhea low phosphorus: will given K phos x 1 not giving oral phosphate as neutraphos can cause diarrhea diarrhea: work up ongoing likely colonoscopy today Will follow in clinic, given improvement in renal function Thank you for giving me an opportunity to participate in Mr Donohue's medical care , appreciate it Status: Acute
[2017-04-02] MEDS: POTASSIUM CHLORIDE 20 MEQ/15 ML ML PT SCH ×2 (13:50→22:37)
[2017-04-02] MEDS: 0.45 % SODIUM CHLORIDE 1,000 ML IV SCH (17:27)
[2017-04-02] MEDS ORDERED: PROPOFOL 20 ML IV ONE (19:40)
[2017-04-02] MEDS ORDERED: MIDAZOLAM 2 MG/2 ML VIAL ONE (19:40)
[2017-04-02] MEDS: MIDAZOLAM 2 MG/2 ML VIAL IV SCH (20:10)
[2017-04-02] MEDS: PROPOFOL 200 MG/20 ML VIAL IV SCH (20:10)
[2017-04-03] MEDS: PROPOFOL 200 MG/20 ML VIAL IV SCH (01:53)
[2017-04-03] MEDS: MIDAZOLAM 2 MG/2 ML VIAL IV SCH (01:53)
[2017-04-03] MEDS: SENNOSIDES/DOCUSATE SODIUM 1 TAB TABLET PO SCH ×2 (01:55→21:42)
[2017-04-03] MEDS: 0.9 % SODIUM CHLORIDE 10 ML SYRINGE IV SCH ×4 (01:55→21:42)
[2017-04-03 05:32] LABS: Mean Cell Volume 87.6 fL (80.0-100.0); Mean Corpuscular HGB Conc 34.4 g/dL (31.0-36.0); Mean Corpuscular Hemoglobin 30.1 pg (26.0-34.0); Platelet Count 157 K/mcL (140-440); Red Cell Distribution Width 15.7 % (11.5-14.5)
[2017-04-03 05:52] LABS: ALT/SGPT 8 U/l (0-40); Albumin 3.5 gm/dL (3.2-5.2); Albumin/Globulin Ratio 1.8 (1.0-2.3); Alkaline Phosphatase 47 U/L (39-117); Bilirubin,Direct < 0.2 mg/dL (0.0-0.3); Blood Urea Nitrogen 11 mg/dl (8-23); Gamma Glutamyl Transpeptidase 16 U/L (8-61); Magnesium 1.6 mg/dL (1.6-2.5); Uric Acid 7.1 mg/dL (2.5-8.0)
[2017-04-03 06:52] LABS: Anisocytosis 1+ (NONE SEEN); Eosinophils % (Manual) 2 % (0-7); Lymphocytes % 23 % (15-49); Monocytes % (Manual) 9 % (1-12); Platelet Estimate NORMAL (NORMAL); RBC Morphology ABNORM (NORMAL); Segmented Neutrophils % 66 % (38-78)
[2017-04-03] MEDS: 0.45 % SODIUM CHLORIDE 1,000 ML IV SCH ×3 (07:10→21:38)
[2017-04-03] MEDS: DABIGATRAN ETEXILATE MESYLATE 75 MG CAPSULE PO SCH ×2 (08:37→21:42)
[2017-04-03] MEDS: POTASSIUM CHLORIDE 20 MEQ/15 ML ML PT SCH ×3 (08:37→21:42)
[2017-04-03] MEDS: ATORVASTATIN 20 MG TABLET PO SCH (08:37)
[2017-04-03] MEDS: MULTIVIT,THER IRON,CA,FA & MIN 1 TABLET PO SCH (08:38)
[2017-04-03] MEDS: DONEPEZIL 10 MG TABLET PO SCH (08:38)
[2017-04-03] MEDS: MEMANTINE 10 MG TABLET PO SCH ×2 (08:38→21:42)
--- NOTE | 2017-04-03 10:08 | Internal Med Progress Note ---
Medical - PN: Subj Patient information: Note initiated : 04/03/17 at 10:06 am Service Date, if different from initiated Date: [] Patient: Aubrey Donohue 76 y/o M admitted on 03/31/17 for Weight Loss,Fatigue, Nausea/Renal Failure, Diarrhea. Chief Complaint: [] Interval history: 03/31- patient admitted with acute renal failure secondary to combination of volume depletion and contrast-induced nephropathy. Creatinine 6. 6 potassium 2.5. Admitted to telemetry. continue aggressive crystalloids and electrolyte replacement. Renal ultrasound pending. Nephrology consulted. 04/01- creatinine down from 6.6 to 3.5. Potassium improved 2.9. Good urine output over 1700 cc since admission. patient feels a lot better. Case discussed with nephrology and patient's primary care physician Dr. Amrit Baker. afebrile with stable hemodynamics. Extensive stool testing pending including fecal fat/transglutaminase antibody/osmolarity. patient will require outpatient colonoscopy. 3 episodes of loose stools since morning 04/02- creatinine 1.5. GI consult for colonoscopy. Potassium persistently low at 2.9 on replacement. Nephrology signing off. continue clears. Runs of V. tach last night. Continue telemetry monitoring. replace magnesium and oral potassium. 04/03- patient post colonoscopy. doing well. Creatinine 1. potassium 3.4 improving with oral replacement. phosphorus 1.4 start oral replacement. possible discharge in 24 hours. underlying medical issues stable. No overnight fever chills nausea vomiting or concerns per staff - Constitutional Vitals: Vital Signs Temp Pulse Resp BP Pulse Ox 100.0 F H 62 18 143/65 94 04/03/17 07:05 04/03/17 07:26 04/03/17 07:26 04/03/17 07:05 04/03/17 07:26 Period Temp Pulse Resp BP Sys/[place] Pulse Ox Last 24 Hr 97.8 F-100.0 F 59-71 14-18 119-143/51-68 94-100 Intake and Output 04/02/17 04/03/17 04/03/17 21:59 05:59 13:59 Intake Total 300 / 300 300 / 300 1550 / 1550 Output Total 1000 / 1000 1200 / 1200 Balance -700 / -700 -900 / -900 1550 / 1550 Weight 174 lb Intake & Output: Intake & Output 05/12/17 05/13/17 05/13/17 21:59 05:59 13:59 Intake Total 300 / 300 300 / 300 1550 / 1550 Output Total 1000 / 1000 1200 / 1200 Balance -700 / -700 -900 / -900 1550 / 1550 Weight 174 lb Intake: IV 1000 / 1000 Sodium Chloride 0.45% 1, 1000 / 1000 000 ml @ 75 mls/hr IV . [id number] [facility] Rx#:[id number] Oral 300 / 300 300 / 300 550 / 550 Output: Urine Catheter Amount 1000 / 1000 1200 / 1200 Other: Meal Breakfast Percent of Meal Consumed 100% Feeding Ability Independent # [place] 1 General appearance: cooperative, no acute distress Exam: alert oriented nonlabored breathing Nondistended abdomen No anxiety Medical - PN: Obj Da - Labs CBC & Chem 7: 04/03/17 04:55 04/03/17 04:55 Labs: Abnormal Lab Results 04/03/17 04/03/17 04/02/17 04:55 04:55 13:20 WBC RBC 4.40 L Hgb 13.2 L Hct 38.5 L RDW 15.7 H Lymphocytes % Nucleated RBCs 1 H RBC Morphology Abnorm A Anisocytosis 1+ A Acanthocytes (Spur) RBC Fragments Occ A Potassium 3.2 L Chloride 109 H Carbon Dioxide Anion Gap BUN Creatinine Glucose Uric Acid Calcium 7.7 L Ionized Calcium Tia Phosphorus 1.4 L Lactate Dehydrogenase 309 H Total Protein 5.5 L Total Protein (PEP) Globulin 2.0 L Triglycerides Urine Occult Blood Urine RBC Uric Acid Crystals Hyaline Casts Granular Casts 04/02/17 04/02/17 04/01/17 04:30 04:30 18:30 WBC RBC 4.30 L Hgb 12.8 L Hct 38.0 L RDW 15.2 H Lymphocytes % 13 L Nucleated RBCs RBC Morphology Abnorm A Anisocytosis Acanthocytes (Spur) RBC Fragments Few A Potassium 2.9 L* 3.1 L Chloride 112 H 111 H Carbon Dioxide 19 L 20 L Anion Gap BUN 27 H 38 H Creatinine 1.5 H 1.7 H Glucose 137 H Uric Acid 10.8 H Calcium 7.8 L 7.9 L Ionized Calcium Tia Phosphorus 1.4 L Lactate Dehydrogenase Total Protein 5.4 L Total Protein (PEP) 5.2 L Globulin Triglycerides Urine Occult Blood Urine RBC Uric Acid Crystals Hyaline Casts Granular Casts 04/01/17 04/01/17 04/01/17 11:20 09:31 03:28 WBC RBC Hgb Hct RDW Lymphocytes % Nucleated RBCs RBC Morphology Anisocytosis Acanthocytes (Spur) RBC Fragments Potassium 2.7 L* 2.9 L* Chloride 111 H Carbon Dioxide 19 L 19 L Anion Gap BUN 46 H 54 H Creatinine 2.5 H 3.5 H Glucose Uric Acid 15.4 H Calcium 7.9 L 7.8 L Ionized Calcium Tia Phosphorus Lactate Dehydrogenase Total Protein 5.6 L Total Protein (PEP) Globulin Triglycerides 153 H Urine Occult Blood 0.03 A Urine RBC 3 H Uric Acid Crystals Few A Hyaline Casts 5 H Granular Casts 1 H 04/01/17 03/31/17 03:28 20:15 WBC 11.1 H RBC Hgb Hct RDW 15.5 H Lymphocytes % Nucleated RBCs RBC Morphology Abnorm A Anisocytosis Acanthocytes (Spur) Few A RBC Fragments Few A Potassium 2.7 L* Chloride Carbon Dioxide 17 L Anion Gap 20.0 H BUN 62 H Creatinine 5.2 H* Glucose Uric Acid Calcium Ionized Calcium Tia 1.06 L Phosphorus Lactate Dehydrogenase Total Protein Total Protein (PEP) Globulin Triglycerides Urine Occult Blood Urine RBC Uric Acid Crystals Hyaline Casts Granular Casts Meds: Medications Acetaminophen (Tylenol) 650 mg PO Q4-6HP PRN PRN Reason: PAIN/FEVER > 101 Atorvastatin Calcium (Lipitor) 40 mg PO DAILY [facility] Last Admin: 04/03/17 08:37 Dose: 40 mg Budesonide (Entecort) 9 mg PO DAILY [facility] Dabigatran (Pradaxa) 150 mg PO BID [facility] Last Admin: 04/03/17 08:37 Dose: 150 mg Donepezil HCl (Aricept) 10 mg PO QAM [facility] Last Admin: 04/03/17 08:38 Dose: 10 mg Magnesium Sulfate (Magnesium Sulfate) 2 gm in 50 mls @ 50 mls/hr IV UD PRN PRN Reason: MG = or < 1.7 Last Infusion: 04/02/17 12:51 Dose: Infused Acetaminophen (Ofirmev) 1,000 mg in 100 mls @ 200 mls/hr IV Q6HP PRN PRN Reason: PAIN/FEVER > 101 Potassium Chloride 40 meq/ (Dextrose) 520 mls @ 130 mls/hr IV UD PRN PRN Reason: K+ = or < 3.5 Magnesium Sulfate (Magnesium Sulfate) 2 gm in 50 mls @ 50 mls/hr IV UD PRN PRN Reason: Mag < or = 1.7 Sodium Chloride (Sodium Chloride 0.45%) 1,000 mls @ 75 mls/hr IV .[id number] [facility] Last Admin: 04/03/17 07:10 Dose: 75 mls/hr Iron Carb/Multivit/[place]/Folic Acid (Multivitamin W/Minerals) 1 tab PO DAILY [facility] Last Admin: 04/03/17 08:38 Dose: 1 tab Loperamide HCl (Imodium) 2 mg PO PRN PRN PRN Reason: Diarrhea Last Admin: 04/01/17 16:52 Dose: 2 mg Memantine (Namenda) 5 mg PO BID [facility] Last Admin: 04/03/17 08:38 Dose: 5 mg Ondansetron HCl (Zofran) 4 mg IV Q4-6HP PRN PRN Reason: Nausea And Vomiting Potassium Chloride (Klor-Con) 40 meq PO DAILYP PRN PRN Reason: K+ < 3.5 Last Admin: 04/02/17 06:56 Dose: 40 meq Potassium Chloride (Potassium Chloride) 20 meq PT TID [facility] Last Admin: 04/03/17 08:37 Dose: 20 meq Senna/Docusate Sodium (Senna Plus Tablet) 1 tab PO HS [facility] Last Admin: 04/03/17 01:55 Dose: Not Given Sodium Chloride (Saline Flush) 10 ml IV Q8 [facility] Last Admin: 04/03/17 05:44 Dose: Not Given Medical - PN: A/P - Time Spent With Patient Total time spent is greater than 50% in coordination of care (as documented) at patient's floor/unit and/or counseling patient: 15 - 24 minutes (1) Acute renal failure Status: Acute Assessment and plan: * Aute renal failure- combination of volume depletion/FRANCES leading to ischemic/ toxic ATN. clinical resolution noted. Creatinine down from 6.6-1. Nephrology signed off * critical hypokalemia- A improved with IV and oral replacement. Potassium at 3.4 * low phosphorus- 1.4. Start oral replacement * persistent diarrhea-status post colonoscopy. Await recommendations by GI * history of hypertension-continue amlodipine,metoprolol. restart ZOË inhibitor. * hyperlipemia -continue statin * History of dementia on donepezil * History of CVA - continue anticoagulation plan * Continue electrolyte replacement * Restart ZOË inhibitor * await GI recommendations * possible discharge in 24 hours Current Visit: Yes
[2017-04-03] MEDS: NEUTRA PHOS 1 PACKET PO SCH ×2 (12:44→21:48)
[2017-04-03] MEDS: BUDESONIDE 3 MG CAP.XL.24H PO SCH (14:50)
[2017-04-03] MEDS: LOPERAMIDE 2 MG CAPSULE PO PRN (17:43)
[2017-04-03] MEDS: MAGNESIUM SULFATE 2 GM/50 ML BAG IV PRN (17:44)
[2017-04-04] MEDS: 0.9 % SODIUM CHLORIDE 10 ML SYRINGE IV SCH ×2 (05:00→12:03)
[2017-04-04 05:55] LABS: Mean Corpuscular HGB Conc 33.8 g/dL (31.0-36.0); Mean Corpuscular Hemoglobin 30.1 pg (26.0-34.0); Platelet Count 147 K/mcL (140-440); RBC 4.32 M/mcL (4.50-5.90)
[2017-04-04 06:17] LABS: ALT/SGPT 10 U/l (0-40); Albumin 3.2 gm/dL (3.2-5.2); Albumin/Globulin Ratio 1.5 (1.0-2.3); Alkaline Phosphatase 47 U/L (39-117); Bilirubin,Direct < 0.2 mg/dL (0.0-0.3); Blood Urea Nitrogen 9 mg/dl (8-23); Gamma Glutamyl Transpeptidase 16 U/L (8-61); Magnesium 1.9 mg/dL (1.6-2.5)
[2017-04-04 06:55] LABS: Anisocytosis 1+ (NONE SEEN); Lymphocytes % 4 % (15-49); Monocytes % (Manual) 7 % (1-12); Platelet Estimate NORMAL (NORMAL); RBC Morphology ABNORM (NORMAL); Segmented Neutrophils % 85 % (38-78)
[2017-04-04] MEDS ORDERED: LISINOPRIL 10 MG TABLET PO SCH (09:00)
--- NOTE | 2017-04-04 09:24 | Discharge Summary ---
Medical - DS: Prov Patient information: Note initiated : 04/04/17 at 9:20 am Service Date, if different from initiated Date: [] Patient: Aubrey Donohue 76 y/o M admitted on 03/31/17 for Weight Loss,Fatigue, Nausea/Renal Failure, Diarrhea. Chief Complaint: [] Date of admission: 03/31/17 15:50 Discharge date: 04/04/17 Primary care physician: [f_Reg Prim Care Provider] Consults: 04/02/17 19:57 Consult to Physician [CONS] Routine Comment: Consulting Provider: Toni Brennan Reason For Exam: Physician to Consult Medical - DS: Meds - Discharge Medications Prescriptions: Budesonide [Entecort] 9 mg PO DAILY #30 cap.xl.24h Loperamide [Imodium] 2 mg PO PRN PRN #10 capsule PRN Reason: Diarrhea Active and Home Medications: Home Medications cholecalciferol (vitamin D3) 1,000 unit capsule 1,000 unit PO QDAY cap [History Confirmed 03/31/17 Last Taken Unknown] cyanocobalamin (vit B-12) 1,000 mcg tablet 1,000 mcg PO QDAY tab 07/09/15 [ History Confirmed 03/31/17 Last Taken Unknown] diphenhydramine 25 mg capsule 50 mg PO QHS PRN cap 07/09/15 [History Confirmed 03/31/17 Last Taken Unknown] multivitamin tablet 1 tab PO QDAY tab 07/09/15 [History Confirmed 03/31/17 Last Taken Unknown] amlodipine 10 mg tablet 10 mg PO QPM #90 tab 12/18/16 [Rx Confirmed 03/31/17 Last Taken Unknown] atorvastatin 40 mg tablet 40 mg PO QDAY #90 tab 12/18/16 [Rx Confirmed 03/31/17 Last Taken Unknown] dabigatran etexilate 150 mg capsule 150 mg PO BID #90 cap 12/18/16 [Rx Confirmed 03/31/17 Last Taken Unknown] lisinopril 20 mg tablet 10 mg PO QDAY #90 tab 12/18/16 [Rx Confirmed 03/31/17 Last Taken Unknown] memantine 10 mg tablet 10 mg PO BID #180 tab 12/18/16 [Rx Confirmed 03/31/17 Last Taken Unknown] metoprolol tartrate 25 mg tablet 25 mg PO BID #180 tab 12/18/16 [Rx Confirmed Last Taken Unknown] psyllium husk 3.4 gram/5.4 gram oral powder 1 packet PO PRN PRN 03/25/17 [ History Confirmed 03/31/17 Last Taken Unknown] Donepezil [Aricept] 10 mg PO QAM 03/31/17 [History Confirmed 03/31/17 Last Taken Unknown] Potassium Chloride [Klor-Con 10] 10 meq PO DAILY 03/31/17 [History Confirmed 09/07 Last Taken Unknown] Resveratrol 200 mg PO HS 03/31/17 [History Confirmed 03/31/17 Last Taken Unknown ] Tumeric 2 cap PO QAM 03/31/17 [History Confirmed 03/31/17 Last Taken Unknown] Budesonide [Entecort] 9 mg PO DAILY #30 cap.xl.24h 04/04/17 [Rx Last Taken Unknown] Loperamide [Imodium] 2 mg PO PRN PRN #10 capsule 04/04/17 [Rx Last Taken Unknown ] Medical - DS: Hosp Hospital course: Discharge diagnosis * 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 GI Dr. Dailey start patient on oral budesonide. We will follow up with GI as outpatient in 5-7 days. Await : biopsy results * Acute renal failure- combination of volume depletion/FRANCES leading to ischemic/ toxic ATN. clinically resolved with crystalloids * critical hypokalemia-resolved with replacement * low phosphorus- 1.4. continue oral replacement. * history of hypertension-continue amlodipine,metoprolol/FADY inhibitor. Hold chlorthalidone for one week * hyperlipemia -continue statin * History of dementia on donepezil * History of CVA - continue anticoagulation [facility]EF HOSPITAL COURSE Mr. Donohue is a 76 year old male 03/31- patient admitted with acute renal failure secondary to combination of volume depletion from persistent diarrhea and contrast-induced nephropathy. Creatinine 6. 6 potassium 2.5. Admitted to telemetry. continue aggressive crystalloids and electrolyte replacement. Renal ultrasound pending. Nephrology consulted. 04/01- creatinine down from 6.6 to 3.5. Potassium improved 2.9. Good urine output over 1700 cc since admission. patient feels a lot better. Case discussed with nephrology and patient's primary care physician Dr. Amrit Baker. afebrile with stable hemodynamics. persistent diarrhea. Extensive stool testing pending including fecal fat/transglutaminase antibody/osmolarity. patient will require outpatient colonoscopy. 3 episodes of loose stools since morning 04/02- creatinine 1.5. GI consult for colonoscopy in light of persistent diarrhea. Potassium persistently low at 2.9 on replacement. Nephrology signing off. continue clears. Runs of V. tach last night. Continue telemetry monitoring. replace magnesium and oral potassium. 04/03- patient post colonoscopy. doing well. Creatinine 1. potassium 3.4 improving with oral replacement. phosphorus 1.4 start oral replacement. possible discharge in 24 hours. underlying medical issues stable. 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 Patient will follow with GI in 5-7 days. Await biopsy results from colonoscopy. Creatinine at 1. Restarted on home meds including Fady inhibitors. Hold chlorthalidone for a week. Recommend repeat BMP in 3-5 days. Follow primary care physician/GI Dr. Dailey. Detailed discharge instructions as below Discharge diagnosis: . - Time Spent with Patient Total time spent providing and/or coordinating discharge services: Greater than 30 minutes Medical - DS: Exam - Constitutional Vitals: Vital Signs Temp Pulse Pulse Resp BP BP Pulse Ox 04/04/17 07:26 97 04/04/17 06:13 97.8 F 16 124/62 97 04/04/17 04:00 98.9 F 16 131/53 95 04/04/17 00:00 98.4 F 20 120/51 96 04/03/17 19:20 98.2 F 20 117/51 95 04/03/17 16:00 98.2 F 20 112/60 94 04/03/17 15:40 61 04/03/17 13:28 93 04/03/17 12:00 99.8 F H 63 16 134/68 95 Intake and Output 04/03/17 04/04/17 04/04/17 21:59 05:59 13:59 Intake Total 1433 / 1433 240 / 240 720 / 720 Output Total 2200 / 2200 1700 / 1700 Balance -767 / -767 -1460 / -1460 720 / 720 Intake: IV 1013 / 1013 Sodium Chloride 0.45% 1, 1000 / 1000 000 ml @ 75 mls/hr IV . [id number] [facility] Rx#:[id number] Oral 420 / 420 240 / 240 720 / 720 Output: Urine Catheter Amount 2200 / 2200 1700 / 1700 Other: Meal Dinner Breakfast Percent of Meal Consumed 100% 100% Feeding Ability Assist with Tray Set Up Independent # Voids 1 # Bowel Movements 1 1 Weight 173 lb 8 oz Medical - DS: Data Labs on day of discharge: Labs from last 24 hours 04/04/17 04/04/17 04:45 04:45 WBC 10.1 RBC 4.32 L Hgb 13.0 L Hct 38.4 L MCV 89.0 MCH 30.1 MCHC 33.8 RDW 16.0 H Plt Count 147 MPV 10.1 Total Counted 100 Seg Neutrophils % 85 H Band Neutrophils % Not Reportable Lymphocytes % 4 L Monocytes % (Manual) 7 Reactive Lymphocytes 4 H Platelet Estimate Normal RBC Morphology Abnorm A Anisocytosis 1+ A RBC Fragments Occ A Sodium 142 Potassium 4.1 Chloride 108 Carbon Dioxide 26 Anion Gap 8.0 BUN 9 Creatinine 1.0 GFR Calculation 74 Glucose 116 H Uric Acid 6.0 Calcium 7.8 L Phosphorus 1.3 L Magnesium 1.9 Total Bilirubin 0.4 Direct Bilirubin < 0.2 GGT 16 AST 11 ALT 10 Alkaline Phosphatase 47 Lactate Dehydrogenase 165 Total Protein 5.4 L Albumin 3.2 Globulin 2.2 Albumin/Globulin Ratio 1.5 Triglycerides 51 Medical - DS: A/P - Patient/Caregiver Discharge Instructions Activity: increase activity as tolerated, resume usual activities as tolerated Diet: Regular Diet Additional Instructions: Call Doctor Anu's office Wednesday to set up appointment for Monday 04/09 for review of colonoscopy biopsy/treatment follow-up for microscopic colitis Follow-up PCP in 5 days I recommend primary care physician to check CBC BMP as a posthospital follow- up continue ral budesonide as per GI recommendations All meals on chair sitting upright at 90 degrees to prevent aspiration return to ER if persistent diarrhea weakness Continue diet and activity as advised Discussed importance of medication adherence Please review medication list with patient prior to discharge Please schedule follow-up with PCP/Providers prior to discharge and provide printouts Portions of this chart may have been created with [email or web address] voice recognition software. Occasional wrong-word or ?sound-like? substitutions may have occurred due to the inherent limitations of voice recognition software. Please read the chart carefully and recognize, using context, where the substitutions have occurred. CC- PCP Prescriptions: Budesonide [Entecort] 9 mg PO DAILY #30 cap.xl.24h Loperamide [Imodium] 2 mg PO PRN PRN #10 capsule PRN Reason: Diarrhea - Problem Maintenance (1) Acute renal failure Status: Acute - Follow up Plan Follow up with: Amrit Parker MD [Primary Care Provider] - Disposition: Home, Self-Care Prognosis: Fair Rehab Potential: Fair I certify that the patient requires SNF services: No Overall status at discharge: patient is progressing back to baseline
--- NOTE | 2017-04-04 10:13 | Internal Med Progress Note ---
Medical - PN: Subj Patient information: Note initiated : 04/04/17 at 10:11 am Service Date, if different from initiated Date: [] Patient: Aubrey Donohue 76 y/o M admitted on 03/31/17 for Weight Loss,Fatigue, Nausea/Renal Failure, Diarrhea. Chief Complaint: pt feels good today; may have had some Imodium (?) last p.m. and did receive first 9 mg dose of budesonide yesterday. Eating regular food meals with only mild diarrhea reported. no abd pain.[] Interval history: pt says he may go home later today Pertinent ROS: no fever. Able to walk in hallway; only has dizziness if he stands up too quickly. - Constitutional Vitals: Vital Signs Temp Pulse Resp BP Pulse Ox 97.8 F 61 16 124/62 97 04/04/17 06:13 04/03/17 15:40 04/04/17 06:13 04/04/17 06:13 04/04/17 07:26 Period Temp Pulse Resp BP Sys/[place] Pulse Ox Last 24 Hr 97.8 F-99.8 F 61-63 16-20 112-134/51-68 93-97 Intake and Output 04/03/17 04/04/17 04/04/17 21:59 05:59 13:59 Intake Total 1433 / 1433 240 / 240 720 / 720 Output Total 2200 / 2200 1700 / 1700 Balance -767 / -767 -1460 / -1460 720 / 720 Weight 173 lb 8 oz Intake & Output: Intake & Output 04/03/17 04/04/17 04/04/17 21:59 05:59 13:59 Intake Total 1433 / 1433 240 / 240 720 / 720 Output Total 2200 / 2200 1700 / 1700 Balance -767 / -767 -1460 / -1460 720 / 720 Weight 173 lb 8 oz Intake: IV 1013 / 1013 Sodium Chloride 0.45% 1, 1000 / 1000 000 ml @ 75 mls/hr IV . [id number] [facility] Rx#:[id number] Oral 420 / 420 240 / 240 720 / 720 Output: Urine Catheter Amount 2200 / 2200 1700 / 1700 Other: Meal Dinner Breakfast Percent of Meal Consumed 100% 100% Feeding Ability Assist with Tray Set Up Independent # Voids 1 # Bowel Movements 1 1 General appearance: average body habitus, cooperative - Respiratory Respiratory exam: Absent: respiratory distress - GI/Abdominal GI/Abdominal exam: Present: soft. Absent: distended, tenderness Medical - PN: Obj Da - Labs CBC & Chem 7: 04/04/17 04:45 04/04/17 04:45 Labs: Abnormal Lab Results 04/04/17 04/04/17 04/03/17 04:45 04:45 04:55 RBC 4.32 L Hgb 13.0 L Hct 38.4 L RDW 16.0 H Seg Neutrophils % 85 H Lymphocytes % 4 L Nucleated RBCs Reactive Lymphocytes 4 H RBC Morphology Abnorm A Anisocytosis 1+ A RBC Fragments Occ A Potassium Chloride 109 H Carbon Dioxide BUN Creatinine Glucose 116 H Uric Acid Calcium 7.8 L 7.7 L Phosphorus 1.3 L 1.4 L Lactate Dehydrogenase 309 H Total Protein 5.4 L 5.5 L Total Protein (PEP) Globulin 2.0 L Urine Occult Blood Urine RBC Uric Acid Crystals Hyaline Casts Granular Casts 04/03/17 04/02/17 04/02/17 04:55 13:20 04:30 RBC 4.40 L Hgb 13.2 L Hct 38.5 L RDW 15.7 H Seg Neutrophils % Lymphocytes % Nucleated RBCs 1 H Reactive Lymphocytes RBC Morphology Abnorm A Anisocytosis 1+ A RBC Fragments Occ A Potassium 3.2 L 2.9 L* Chloride 112 H Carbon Dioxide 19 L BUN 27 H Creatinine 1.5 H Glucose Uric Acid 10.8 H Calcium 7.8 L Phosphorus 1.4 L Lactate Dehydrogenase Total Protein 5.4 L Total Protein (PEP) 5.2 L Globulin Urine Occult Blood Urine RBC Uric Acid Crystals Hyaline Casts Granular Casts 04/02/17 04/01/17 04/01/17 04:30 18:30 11:20 RBC 4.30 L Hgb 12.8 L Hct 38.0 L RDW 15.2 H Seg Neutrophils % Lymphocytes % 13 L Nucleated RBCs Reactive Lymphocytes RBC Morphology Abnorm A Anisocytosis RBC Fragments Few A Potassium 3.1 L 2.7 L* Chloride 111 H 111 H Carbon Dioxide 20 L 19 L BUN 38 H 46 H Creatinine 1.7 H 2.5 H Glucose 137 H Uric Acid Calcium 7.9 L 7.9 L Phosphorus Lactate Dehydrogenase Total Protein Total Protein (PEP) Globulin Urine Occult Blood Urine RBC Uric Acid Crystals Hyaline Casts Granular Casts 04/01/17 09:31 RBC Hgb Hct RDW Seg Neutrophils % Lymphocytes % Nucleated RBCs Reactive Lymphocytes RBC Morphology Anisocytosis RBC Fragments Potassium Chloride Carbon Dioxide BUN Creatinine Glucose Uric Acid Calcium Phosphorus Lactate Dehydrogenase Total Protein Total Protein (PEP) Globulin Urine Occult Blood 0.03 A Urine RBC 3 H Uric Acid Crystals Few A Hyaline Casts 5 H Granular Casts 1 H Meds: Medications Acetaminophen (Tylenol) 650 mg PO Q4-6HP PRN PRN Reason: PAIN/FEVER > 101 Atorvastatin Calcium (Lipitor) 40 mg PO DAILY [facility] Last Admin: 04/03/17 08:37 Dose: 40 mg Budesonide (Entecort) 9 mg PO DAILY [facility] Last Admin: 04/03/17 14:50 Dose: 9 mg Dabigatran (Pradaxa) 150 mg PO BID [facility] Last Admin: 04/03/17 21:42 Dose: 150 mg Donepezil HCl (Aricept) 10 mg PO QAM [facility] Last Admin: 04/03/17 08:38 Dose: 10 mg Magnesium Sulfate (Magnesium Sulfate) 2 gm in 50 mls @ 50 mls/hr IV UD PRN PRN Reason: MG = or < 1.7 Last Infusion: 04/03/17 18:00 Dose: 0 mls/hr Acetaminophen (Ofirmev) 1,000 mg in 100 mls @ 200 mls/hr IV Q6HP PRN PRN Reason: PAIN/FEVER > 101 Potassium Chloride 40 meq/ (Dextrose) 520 mls @ 130 mls/hr IV UD PRN PRN Reason: K+ = or < 3.5 Magnesium Sulfate (Magnesium Sulfate) 2 gm in 50 mls @ 50 mls/hr IV UD PRN PRN Reason: Mag < or = 1.7 Sodium Chloride (Sodium Chloride 0.45%) 1,000 mls @ 75 mls/hr IV .[id number] [facility] Last Admin: 04/03/17 21:38 Dose: 75 mls/hr Iron Carb/Multivit/Ob Tech/Folic Acid (Multivitamin W/Minerals) 1 tab PO DAILY [facility] Last Admin: 04/03/17 08:38 Dose: 1 tab Lisinopril (Zestril) 10 mg PO DAILY [facility] Loperamide HCl (Imodium) 2 mg PO PRN PRN PRN Reason: Diarrhea Last Admin: 04/03/17 17:43 Dose: 2 mg Memantine (Namenda) 5 mg PO BID [facility] Last Admin: 04/03/17 21:42 Dose: 5 mg Ondansetron HCl (Zofran) 4 mg IV Q4-6HP PRN PRN Reason: Nausea And Vomiting Potassium Chloride (Klor-Con) 40 meq PO DAILYP PRN PRN Reason: K+ < 3.5 Last Admin: 04/02/17 06:56 Dose: 40 meq Potassium Chloride (Potassium Chloride) 20 meq PT TID [facility] Last Admin: 04/03/17 21:42 Dose: 20 meq Potassium/Phosphorus/Sodium (Neutra Phos) 2 packet PO BID [facility] Last Admin: 04/03/17 21:48 Dose: 2 packet Senna/Docusate Sodium (Senna Plus Tablet) 1 tab PO HS [facility] Last Admin: 04/03/17 21:42 Dose: Not Given Sodium Chloride (Saline Flush) 10 ml IV Q8 [facility] Last Admin: 04/04/17 05:00 Dose: Not Given - Impressions renal function remains normal Medical - PN: A/P - Time Spent With Patient Total time spent is greater than 50% in coordination of care (as documented) at patient's floor/unit and/or counseling patient: less than 15 minutes (1) Diarrhea Status: Acute Assessment and plan: continue budesonide today. would give him a prescription for 9 mg daily empirically while awaiting path report of colon bx's which should be available by Wednesday. If he does not have insurance coverage this can be very expensive (about $1000 for one month). He may get a two or three day partial fill of the Rx while awaiting path report. May need Rx filled at [place] if cost would be too high on private insurance coverage. My office will contact him by Wednesday to schedule appt and to notify him of pathology report. Current Visit: Yes
[2017-04-04] MEDS: 0.45 % SODIUM CHLORIDE 1,000 ML IV SCH (10:17)
[2017-04-04] MEDS: NEUTRA PHOS 1 PACKET PO SCH (10:36)
[2017-04-04] MEDS: POTASSIUM CHLORIDE 20 MEQ/15 ML ML PT SCH (10:36)
[2017-04-04] MEDS: DABIGATRAN ETEXILATE MESYLATE 75 MG CAPSULE PO SCH (10:36)
[2017-04-04] MEDS: MULTIVIT,THER IRON,CA,FA & MIN 1 TABLET PO SCH (10:36)
[2017-04-04] MEDS: ATORVASTATIN 20 MG TABLET PO SCH (10:49)
[2017-04-04] MEDS: DONEPEZIL 10 MG TABLET PO SCH (10:49)
[2017-04-04] MEDS: MEMANTINE 10 MG TABLET PO SCH (10:49)
[2017-04-04] MEDS: BUDESONIDE 3 MG CAP.XL.24H PO SCH (11:23)
--- NOTE | 2017-04-05 10:24 | Operative Note ---
DATE OF OPERATION: 04/02/2017 PROCEDURE: Colonoscopy with biopsies. CAMPAIGN WORKER AND QA TEST LEAD: Toni Brennan MD MEDICATIONS USED: Propofol 130 mg IV and Versed 2 mg IV. PREOPERATIVE DIAGNOSIS: Chronic diarrhea. POSTOPERATIVE DIAGNOSIS: Normal unprepped colonoscopy with biopsies pending throughout the colon to rule out microscopic colitis. CONSENT: Prior to the procedure, the patient provided his own informed consent. The patient was evaluated and considered medically fit for endoscopy. History given is that this patient is 76 years old had never had any major problems with diarrhea until a couple of weeks ago and then he came down with what he thought was the flu. The only reason he thought he had the flu was because he had abrupt onset of ongoing diarrhea. He did not have fever or muscle aches or cough. He eventually developed acute renal failure with creatinine greater than 6 and potassium down to the low 2 range. He is admitted to the hospital here earlier this week and has responded somewhat by having creatinine reduced to 1.9 and potassium repleted but he continues to have diarrhea, especially with meals. I was contacted earlier today by the hospitalist to evaluate the diarrhea. With the patient in the left lateral decubitus position, a rectal exam was performed which was unremarkable. Thereafter, a colonoscope was advanced into the rectum under direct vision. The patient did not receive any additional prep as he has had chronic diarrhea. The scope was then inserted into the rectum and advanced around the colon to the terminal ileum which appears normal. Fine detail of the colon could not be achieved since the patient did not have a bowel prep, but I did not see any areas of pseudomembranes or mass or polyps or gross colitis. I did take biopsies throughout the colon looking for microscopic colitis. COMPLICATIONS: None immediate. RECOMMENDATIONS: I am going to start budesonide 9 mg daily p.o. empirically while awaiting pathology reports from today. This is now Wednesday night, so I do not want the patient to have to wait 4 more days if he is going to show benefit from the budesonide. CORINAM:chente Job ID: [id number] Doc ID: [id number] Toni Parker MD
[2017-04-05 11:07] LABS: Albumin PEP 2.91 gm/dl (3.1-4.7)
--- NOTE | 2017-04-05 13:32 | Surgical Pathology Report ---
HISTOLOGY SPECIMEN MICROSCOPIC DIAGNOSIS COLON, RANDOM, BIOPSY: -- COLONIC MUCOSA WITH INCREASED INTRAEPITHELIAL LYMPHOCYTES, SURFACE EPITHELIAL DENUDATION, EXPANSION OF THE LAMINA PROPRIA BY CHRONIC INFLAMMATION AND RARE FOCI OF ACTIVE COLITIS; SEE COMMENT. (DMT:chris) COMMENT: All submitted fragments show diffuse expansion of the lamina propria by predominately chronic inflammatory cells including lymphocytes and plasma cells. There is prominent, but patchy, increase in intraepithelial lymphocytes with epithelial damage seen as surface denudation. Rare foci of acute cryptitis and a single crypt abscess are seen on multiple step sections. The histologic differential diagnosis includes lymphocytic colitis with foci of active inflammation, acute self limited (infectious colitis) and early inflammatory bowel disease. In the setting of an endoscopically "normal" appearing colon, a diagnosis of lymphocytic colitis is favored. Clinical and endoscopic correlation are recommended. CLINICAL HISTORY Diarrhea with ARF. PROCEDURAL IMPRESSION Normal colon; rule out microscopic colitis. GROSS DESCRIPTION The specimen is received as random colon biopsies rule out microscopic colitis and consists of multiple portions of mccall tissue that range in size from 0.1 to 0.5 cm. Entirely submitted in A1-A2. (ACP:sln) Electronically Signed by: Nikunj Keane M.D.
[2017-04-06 08:25] LABS: Fecal Fat Qualitative NORMAL (NORMAL); Norovirus Ag Stool NOT DETECTED; TTG IGA AB < 1 U/mL; TTG IGG AB < 1 U/mL
[2017-04-07 09:15] LABS: Alpha-2-Globulin 19 %; Pro/Creat Ratio 270 mg/g cre (22-128)
== END 2017-04-04 14:15 | disposition home or self-care (01) | DRG 683 ==
LOC: ED 11:13 → ICU 15:50
PROVIDERS: ADMIT Internal Medicine; ATTEND Internal Medicine
PROC: COLONBX (2017-04-02 19:00)

== ENCOUNTER 2017-07-20 10:40 | Observation (INO) ==
[2017-07-20] MEDS ORDERED: niCARdipine 25 MG in 0.9 % SODIUM CHLORIDE 240 ML IV ONE (10:48)
--- NOTE | 2017-07-20 11:01 | Cat Scan Report ---
CLINICAL INFORMATION: Code stroke. Acute extremity weakness COMPARISON: None. TECHNIQUE: 2.5 mm helical slices were obtained in the skull base to vertex. Following reconstruction, axial reformatted images were reviewed at bone and parenchymal windows. FINDINGS: The ventricles, sulci, fissures, and cisterns are symmetrically enlarged compatible with moderate atrophy - no extra-axial fluid collection or mass appreciated. Mild chronic ischemic changes in the deep cerebral white matter. A large remote cortical-based infarct in the right occipital lobe is appreciated. A smaller cortical based infarct in the right frontal lobe is also noted. No acute cerebral hemorrhage, mass effect or edema. Bone windows show no osseous abnormality. IMPRESSION: No evidence of hemorrhage, edema or other acute intracerebral finding Large old cortical-based infarct right occipital lobe. Small old cortical-based infarct in the right frontal lobe Mild atrophy and chronic ischemic changes in the deep white matter - as expected for age.. Interpreted and Authenticated by: Toni Fitzpatrick 07/20/17
--- NOTE | 2017-07-20 11:23 | Emergency Department Note ---
Neuro HPI - General Chief Complaint: Stroke Symptoms Stated Complaint: stroke symtoms Time Seen by Provider: 07/20/17 10:48 Source: patient, family Mode of arrival: ambulatory Limitations: other - History of Present Illness HPI Narrative: 77-year-old male with a history of waking up at approximately 8:00 this morning having breakfast and a bagel. No episodes of weakness or dizziness at that time however 900 hours is tried to read the newspaper and was unable to to visual defects. 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 Have a history of atrial fibrillation. His current EKG shows normal sinus rhythm with a right bundle branch block. His Accu-Chek is 124. Patient does have dementia but his response appear to be low he is oriented 3 alert son states that this is normal for him doing no neurologic deficits no weaknesses in either extremities or facial region. There is no slurring of speech his speech is slow son states this is normal for him. He was able to a walk to the car but son states he was more weaker than normal, but no neurologic deficits. Has had no injury no trauma his blood pressures are greater than 200, nicardipine drip has been started.. Stroke called and patient CT at this time. - Related Data Home Medications: Home Medications Medication Instructions Recorded Confirmed cholecalciferol (vitamin D3) 1,000 1,000 unit PO QDAY cap 07/09/15 07/20/17 unit capsule cyanocobalamin (vit B-12) 1,000 1,000 mcg PO QDAY tab 07/09/15 07/20/17 mcg tablet diphenhydramine 25 mg capsule 50 mg PO QHS PRN cap 07/09/15 07/20/17 multivitamin tablet 1 tab PO QDAY tab 07/09/15 07/20/17 psyllium husk 3.4 gram/5.4 gram 1 packet PO PRN PRN 03/25/17 07/20/17 oral powder Previous Rx's Medication Instructions Recorded metoprolol tartrate 25 mg tablet 12.5 mg PO BID #180 tab 04/20/17 dabigatran etexilate 150 mg capsule 150 mg PO BID 90 Days 07/16/17 Allergies/Adverse Reactions: Allergies Allergy/AdvReac Type Severity Reaction Status Date / Time No Known Drug Allergies Allergy Verified 04/20/17 14:32 Review of Systems All systems ED: reviewed and negative except as stated. Constitutional: Denies: fever, chills Eyes: Reports: vision change. Denies: eye pain, eye discharge ENT ED: Denies: ear pain Cardiovascular: Denies: chest pain Respiratory: Denies: cough Gastrointestinal: Denies: abdominal pain Genitourinary: Denies: urgency Musculoskeletal: Denies: back pain Integumentary: Denies: rash Neurological: Reports: as per HPI, headache, weakness, other (Visual disturbance unable to put the words together). Denies: numbness, paresthesias , confusion Psychiatric: Denies: anxiety Endocrine: Denies: fatigue Hematological/Lymphatic: Denies: easy bleeding Allergic/Immunologic: Denies: facial swelling Past Medical History - Past Medical History Medical history: Reports: atrial fibrillation, CVA, dementia, hyperlipidemia, hypertension, other (myasthenia gravis) Surgical history ED: Reports: other (has metallic device implanted chest mri conditional) Family history: Reports: cancer (mother colon ca) - Social History smoking status: Former smoker Alcohol use: Reports: Occasionally Drug use: Reports: none Physical Exam - General Limitations: no limitations, other General appearance: anxious - Head Head exam: atraumatic, normocephalic - Eye Eye exam: Present: normal appearance, PERRL - ENT ENT exam: normal exam, normal oropharynx, mucous membranes moist - Neck Neck exam: Present: normal inspection, full ROM. Absent: trachea midline - Chest Chest inspection: Present: normal inspection, symmetric chest wall rise. Absent : tenderness - Respiratory Respiratory exam: Present: normal lung sounds bilaterally. Absent: respiratory distress, wheezes, stridor - Cardiovascular Cardiovascular exam: Present: regular rate, normal rhythm. Absent: bradycardia , tachycardia - Abdominal Exam Abdominal exam: Present: soft. Absent: distention, tenderness - Extremities Exam Extremities exam: Present: normal inspection, full ROM - Back Exam Back exam: Present: normal inspection, full ROM. Absent: tenderness, CVA tenderness (R), CVA tenderness (L) - Expanded Neurological Exam Patient oriented to: Present: person, place, time Speech: Present: fluid speech Cranial nerves: EOM function (II, III, IV, ): Abnormal Left (chronic l hemianopsia), facial sensation (V): Normal, facial palsy (VII): Normal, gag reflex (IX): Normal, spinal accessory function (XI): Normal, tongue deviation ( XII): Normal Cerebellar function: finger to nose: Normal Motor strength - LUE: 5/5 Motor strength - RUE: 5/5 Motor strength - LLE: 5/5 Motor strength - RLE: 5/5 Upper motor neuron exam: Babinski sign: Absent bilaterally Sensory exam upper extremity: Normal: light touch Sensory exam lower extremity: Normal: light touch, pin prick DTR: 2+: patellar (L), patellar (R) Coma Scale Eye Opening: Spontaneous Coma Scale Motor Response: Obeys Commands Coma Scale Verbal Response: Oriented Coma Scale Total: 15 - Psychiatric Psychiatric exam: Present: anxious - Skin Skin exam: Present: warm, dry Course Vital Signs Temperature 98.0 F 07/20/17 10:41 Pulse Rate 69 07/20/17 10:41 Respiratory Rate 16 07/20/17 10:41 Blood Pressure 208/107 07/20/17 10:41 Pulse Oximetry (%) 98 07/20/17 10:41 Temperature 98.0 F 07/20/17 10:41 Pulse Rate 76 07/20/17 13:02 Respiratory Rate 16 07/20/17 13:02 Blood Pressure 147/78 07/20/17 12:45 Pulse Oximetry (%) 93 07/20/17 13:02 Neuro Symptoms/Deficit - MDM Narrative Medical decision making narrative: head ct is normal. Dr Porter consulted and recommended no tpa due to the fact he is on pradaxa and TPA contraindicated. Pt was 1.1 He did go into acute renal failure on 04/20/[address] enhanced abd pelvis xray and was hospitailzed for this. however is bun is 11 and cr is .9 dr Porter felt cta ok if radiology oks. Dr Porter felt transfer to [facility]. . Dr Dickens consulted and cta was read as negative. He felt pt to be admitted here as no intervention was neccessary, but to keep him on the pradaxa - Lab Data Result diagrams: 07/20/17 10:50 07/20/17 10:50 Lab Results 07/20/17 07/20/17 07/20/17 Range/Units 10:47 10:50 10:50 WBC 9.5 (4.5-11.0) K/mcL RBC 5.62 (4.50-5.90) M/mcL Hgb 16.9 H (13.5-16.5) g/dL Hct 51.3 (41.0-55.0) % POC Hct 52.0 (41.0-55.0) % MCV 91.3 (80.0-100.0) fL MCH 30.0 (26.0-34.0) pg MCHC 32.8 (31.0-36.0) g/dL RDW 14.3 (11.5-14.5) % Plt Count 180 (140-440) K/mcL MPV 9.1 (7.4-10.4) fL Gran % 75.0 (38.0-78.0) % Lymph % (Auto) 15.7 (15.5-49.0) % [place] % (Auto) 7.9 (1.0-12.0) % Eos % (Auto) 1.1 (0.0-7.0) % Baso % (Auto) 0.3 (0.0-2.0) % Gran # 7.1 (1.8-8.0) K/mcL Lymph # (Auto) 1.5 (1.5-4.8) K/mcL [place] # (Auto) 0.8 (0.1-0.9) K/mcL Eos # (Auto) 0.1 (0.0-0.7) K/mcL Baso # (Auto) 0 (0.0-0.3) K/mcL POC PT 13.7 (11.9-14.5) sec POC INR 1.1 (0.9-1.2) APTT 24 (20-37) sec POC Sodium 142 (133-145) mmol/L Sodium 140 (133-145) mmol/L POC Potassium 3.3 (3.3-5.1) mmol/L Potassium 3.4 (3.3-5.1) mmol/L POC Chloride 104 (96-108) mmol/L Chloride 103 (96-108) mmol/L Carbon Dioxide 24 (22-30) mmol/L POC Total CO2 26 (22-30) mmol/L Anion Gap 13.0 (8-16) POC BUN 11 (8-23) mg/dl BUN 11 (8-23) mg/dl Creatinine 0.9 (0.7-1.2) mg/dl POC Creatinine 0.9 (0.7-1.2) mg/dl GFR Calculation 83 Glucose 135 H (70-105) mg/dL POC Glucose 136 H (70-105) mg/dL Calcium 8.8 (8.6-10.4) mg/dl POC WB Ioniz Calcium 1.08 L (1.16-1.32) mmol/L Total Bilirubin 0.5 (0.0-1.0) mg/dL AST 12 (0-37) U/l ALT 8 (0-40) U/l Alkaline Phosphatase 55 (39-117) U/L Troponin T (0-0.03) ng/ml Total Protein 6.4 (5.9-8.4) gm/dL Albumin 4.0 (3.2-5.2) gm/dL Globulin 2.4 (2.2-3.7) gm/dL Albumin/Globulin Ratio 1.7 (1.0-2.3) Urine Color Urine Appearance Urine pH (5.0-9.0) Ur Specific [place] (1.000-1.035) Urine Protein (NEG) mg/dL Urine Glucose (UA) (NEG) mg/dL Urine Ketones (NEG) mg/dL Urine Occult Blood (<0.03) mg/dL Urine Nitrate (NEG) Urine Bilirubin (NEG) mg/dL Urine Urobilinogen (NEG) mg/dL Ur Leukocyte Esterase (NEG) /uL Ur Culture Indicated? 07/20/17 07/20/17 Range/Units 10:50 11:58 WBC (4.5-11.0) K/mcL RBC (4.50-5.90) M/mcL Hgb (13.5-16.5) g/dL Hct (41.0-55.0) % POC Hct (41.0-55.0) % MCV (80.0-100.0) fL MCH (26.0-34.0) pg MCHC (31.0-36.0) g/dL RDW (11.5-14.5) % Plt Count (140-440) K/mcL MPV (7.4-10.4) fL Gran % (38.0-78.0) % Lymph % (Auto) (15.5-49.0) % [place] % (Auto) (1.0-12.0) % Eos % (Auto) (0.0-7.0) % Baso % (Auto) (0.0-2.0) % Gran # (1.8-8.0) K/mcL Lymph # (Auto) (1.5-4.8) K/mcL [place] # (Auto) (0.1-0.9) K/mcL Eos # (Auto) (0.0-0.7) K/mcL Baso # (Auto) (0.0-0.3) K/mcL POC PT (11.9-14.5) sec POC INR (0.9-1.2) APTT (20-37) sec POC Sodium (133-145) mmol/L Sodium (133-145) mmol/L POC Potassium (3.3-5.1) mmol/L Potassium (3.3-5.1) mmol/L POC Chloride (96-108) mmol/L Chloride (96-108) mmol/L Carbon Dioxide (22-30) mmol/L POC Total CO2 (22-30) mmol/L Anion Gap (8-16) POC BUN (8-23) mg/dl BUN (8-23) mg/dl Creatinine (0.7-1.2) mg/dl POC Creatinine (0.7-1.2) mg/dl GFR Calculation Glucose (70-105) mg/dL POC Glucose (70-105) mg/dL Calcium (8.6-10.4) mg/dl POC WB Ioniz Calcium (1.16-1.32) mmol/L Total Bilirubin (0.0-1.0) mg/dL AST (0-37) U/l ALT (0-40) U/l Alkaline Phosphatase (39-117) U/L Troponin T < 0.01 (0-0.03) ng/ml Total Protein (5.9-8.4) gm/dL Albumin (3.2-5.2) gm/dL Globulin (2.2-3.7) gm/dL Albumin/Globulin Ratio (1.0-2.3) Urine Color Straw Urine Appearance Clear Urine pH 8.0 (5.0-9.0) Ur Specific [place] 1.009 (1.000-1.035) Urine Protein Neg (NEG) mg/dL Urine Glucose (UA) Negative (NEG) mg/dL Urine Ketones Neg (NEG) mg/dL Urine Occult Blood Neg (<0.03) mg/dL Urine Nitrate Neg (NEG) Urine Bilirubin Neg (NEG) mg/dL Urine Urobilinogen Neg (NEG) mg/dL Ur Leukocyte Esterase Neg (NEG) /uL Ur Culture Indicated? No Disposition Pt seen by BAR HOST/HOSTESS/PA only: No Clinical Impression: Visual disturbance Disposition: Xfer As Inpt ([facility]) Condition: Serious Referrals: Amrit Parker MD [Primary Care Provider] -
[2017-07-20 11:33] LABS: Basophils # (Auto) 0 K/mcL (0.0-0.3); Basophils % (Auto) 0.3 % (0.0-2.0); Eosinophils # (Auto) 0.1 K/mcL (0.0-0.7); Eosinophils % (Auto) 1.1 % (0.0-7.0); Lymphocytes # (Auto) 1.5 K/mcL (1.5-4.8); Lymphocytes % (Auto) 15.7 % (15.5-49.0); Mean Cell Volume 91.3 fL (80.0-100.0); Mean Corpuscular HGB Conc 32.8 g/dL (31.0-36.0); Monocytes # (Auto) 0.8 K/mcL (0.1-0.9); Monocytes % (Auto) 7.9 % (1.0-12.0); Platelet Count 180 K/mcL (140-440); RBC 5.62 M/mcL (4.50-5.90); Red Cell Distribution Width 14.3 % (11.5-14.5)
[2017-07-20 11:55] LABS: ALT/SGPT 8 U/l (0-40); Albumin/Globulin Ratio 1.7 (1.0-2.3); Alkaline Phosphatase 55 U/L (39-117); Blood Urea Nitrogen 11 mg/dl (8-23)
[2017-07-20] MEDS ORDERED: ONDANSETRON 4 MG/2 ML VIAL IV ONE (12:23)
[2017-07-20] MEDS ORDERED: 0.9 % SODIUM CHLORIDE 1,000 ML IV ONE ×2 (12:24→12:32)
[2017-07-20 12:25] LABS: Appearance,Urine CLEAR; Bilirubin,Urine NEG (NEG); Color,Urine STRAW; Glucose,Urine (UA) NEGATIVE (NEG); Leukocyte Esterase,Urine NEG /uL (NEG); Nitrate,Urine NEG (NEG); Protein,Urine NEG (NEG); Specific Gravity,Urine 1.009 (1.000-1.035); Urine Blood NEG mg/dL (<0.03); Urobilinogen,Urine NEG (NEG)
--- NOTE | 2017-07-20 13:35 | Internal Med History&Physical ---
Medical - H&P: [facility] Patient information: Note initiated : 07/20/17 at 1:32 pm Service Date, if different from initiated Date: [] Patient: Aubrey Donohue a 77 y/o M admitted on for stroke symtoms. Chief Complaint: [] Chief complaint: WEAKNESS History of present illness: Mr. Donohue is a 77 year old M Presents to [facility] long with his son Medhat with vision change along with abnormal balance that started around 9 AM hile he was trying to read newspaper. afsaneh has had a history of CVA in 2014 and is on Pradaxa. He denies any thunderclap headache Unilateral weakness or seizure activity. He woke up fine this morning and discovered that his vision is all messed up only after he started reading the newspaper. He subsequently called his son Medhat. She denies drooling or difficulty swallowing. He didn't feel weird and Losing track. He has no deficits from this. Previous stroke with left hemianopsia and cognitive deficits. also patient endorses that he ran out of Pradaxa roughly 2 days ago and missedDoses. Code stroke was initiated given a history of CVA 2014. Case was reviewed with by a physician Dr. Rodgers with [facility] neurologist Dr Porter . In light of negative CT angiogram head neurologist recommended monitoring patient along with her MRI. Further recommendations were to continue Pradaxa and statin. subsequently hospital service was consulted. initial NIH score 3. he denies fever chills diarrhea, dysuria, bloody stool, beta blockers,glandular swelling. He denies medication changes. review of systems 10 point review systems was performed and is negative except as discussed above Medical - H&P: PMH Medical history: Acute renal failure (Acute) Diarrhea (Acute) AF (atrial fibrillation) (Chronic) Arterial ischemic stroke, [employer], right, acute (Chronic) 01/2015 Dementia (Chronic) Hearing loss (Chronic) Pt. 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 Hypercholesterolemia (Chronic) Hyperlipidemia (Chronic) Hypertension, essential (Chronic) Left atrial enlargement (Chronic) severe Myasthenia gravis (Chronic) Patent foramen ovale with atrial septal aneurysm (Chronic) Stroke (Chronic) 04/2015 Surgical history: H/O colonoscopy (Chronic) H/O implanted metallic device (Chronic) AF implant monitor H/O thymectomy (Chronic) 1990 due to myasthenia gravis Pertinent family history: Mother Malignant neoplasm of colon Functional capacity: independent ambulation Smoking status: Former smoker Have you smoked in the last 12 months: No Alcohol use: occasionally Medical - H&P: Meds Home Medications Medication Instructions Recorded Confirmed Type cholecalciferol (vitamin D3) 1,000 1,000 unit PO QDAY cap 07/09/15 07/20/17 History unit capsule cyanocobalamin (vit B-12) 1,000 1,000 mcg PO QDAY tab 07/09/15 07/20/17 History mcg tablet diphenhydramine 25 mg capsule 50 mg PO QHS PRN cap 07/09/15 07/20/17 History multivitamin tablet 1 tab PO QDAY tab 07/09/15 07/20/17 History psyllium husk 3.4 gram/5.4 gram 1 packet PO PRN PRN 03/25/17 07/20/17 History oral powder metoprolol tartrate 25 mg tablet 12.5 mg PO BID #180 tab 04/20/17 07/20/17 Rx dabigatran etexilate 150 mg capsule 150 mg PO BID 90 Days 07/16/17 07/20/17 Rx Allergies Allergy/AdvReac Type Severity Reaction Status Date / Time No Known Drug Allergies Allergy Verified 04/20/17 14:32 Medical - H&P: Exam - Constitutional Vitals: Temp Pulse Resp BP Pulse Ox 98.0 F 76 16 147/78 93 07/20/17 10:41 07/20/17 13:02 07/20/17 13:02 07/20/17 12:45 07/20/17 13:02 General appearance: average body habitus Exam: left hemianopsia conjugated eye movements oral cavity dry no eardischarge. hard of hearing head normocephalic Neck no lymphadenopathy s1 and S2 regular rhythm,ESR and grade 1 chest clear to auscultation abdomen soft lower extremity no cyanosisjoint swelling clubbing skin no suspicious lesion Psych anxiousould cooperative eurograde 5 strength bilateral upper and lower extremity eft hemianopsia Memory orientation preserved Medical - H&P: Reslt - Labs CBC & Chem 7: 07/20/17 10:50 07/20/17 10:50 Labs: Short CBC 07/20/17 Range/Units 10:50 WBC 9.5 (4.5-11.0) K/mcL Hgb 16.9 H (13.5-16.5) g/dL Hct 51.3 (41.0-55.0) % Plt Count 180 (140-440) K/mcL BMP 07/20/17 10:50 Sodium 140 Potassium 3.4 Chloride 103 Carbon Dioxide 24 BUN 11 Creatinine 0.9 Glucose 135 H Calcium 8.8 Cardiac Enzymes 07/20/17 Range/Units 10:50 Troponin T < 0.01 (0-0.03) ng/ml Liver Function 07/20/17 Range/Units 10:50 Total Bilirubin 0.5 (0.0-1.0) mg/dL AST 12 (0-37) U/l ALT 8 (0-40) U/l Alkaline Phosphatase 55 (39-117) U/L Albumin 4.0 (3.2-5.2) gm/dL Urine 07/20/17 Range/Units 11:58 Urine Color Straw Urine Appearance Clear Urine pH 8.0 (5.0-9.0) Ur Specific [place] 1.009 (1.000-1.035) Urine Protein Neg (NEG) mg/dL Urine Glucose (UA) Negative (NEG) mg/dL Medical - H&P: A/P (1) CVA (cerebral vascular accident) Current visit: Yes Status: Acute * Likely acute CVA-istory of atrial fibrillation on Pradaxa for CVA prophylaxis. Continue neurochecks and admitted to telemetry for observation. MRI brain. continue Pradaxa per neurology recommendationsclose hemodynamic monitoring with permissive hypertension. start aggressive physical therapy/SGOT eval/ aggressive bowel regimeto prevent increasing ICT * a. fib currently in sinus.continue beta ag. Continue Pradaxa for stroke prophylaxis * full code Plan * MRI brain * Start Pradaxa if no vidence of large CVA on MRI * Admit to observation telemetry * neuro checks, * ontinue statin Medical - H&P: Qual - Stroke Onset of Symptoms Date: 07/20/17 Onset of Symptoms Time: 09:00
--- NOTE | 2017-07-20 14:48 | Cat Scan Report ---
CLINICAL INFORMATION: Code stroke COMPARISON: None. TECHNIQUE: 80 cc of Isovue-300 were injected intravenously , and using SmartPrep to maximize cerebral arterial opacification, 0.625 mm helical slices were obtained from the skull base through the cerebral vertex. Following reconstruction , sagittal, coronal and axial reformatted images were processed and reviewed at multiple windows and levels. 3D volume rendered and MIP images were also obtained at an independent workstation. FINDINGS: The intracranial internal carotid, vertebral, basilar, anterior, middle and posterior cerebral arteries and branches are normal in contour and caliber without significant stenosis or occlusion.. Superficial/deep cerebral veins and the venous sinuses are widely patent IMPRESSION: Normal Interpreted and Authenticated by: Toni Fitzpatrick 07/20/17
--- NOTE | 2017-07-20 14:52 | Cat Scan Report ---
CLINICAL INFORMATION: Code stroke COMPARISON: None. TECHNIQUE: 80 cc of Isovue-300 were injected intravenously followed by 40 cc of normal saline flush. Using SmartPrep, 0.625 helical slices were obtained from the thoracic aortic arch through the cahto of Patel. Following reconstruction, 2.5 mm sagittal, coronal and axial reformatted images, 3-D volume rendering and CPR images were constructed. FINDINGS: The thoracic aortic arch is normal in contour and caliber with mild diffuse fibrofatty calcific plaque. Aortic branching is conventional. Brachiocephalic, both subclavian, vertebral, common, internal and external carotid arteries are widely patent. No soft tissue abnormalities. Cervical spine shows moderate broad C3-4 disc protrusion resulting in moderate central canal, bilateral lateral recess IV and foraminal narrowing. At C5-6 are large broad disc spur complex results in moderate central canal and severe bilateral lateral recess last IV foraminal narrowing. IMPRESSION: 1. Thoracic aortic arch, brachycephalic, both subclavian, all carotid and vertebral arteries are widely patent. Left vertebral artery is dominant 2. 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
[2017-07-20] MEDS ORDERED: POTASSIUM CHLORIDE 20 MEQ PACKET PO PRN (15:33)
[2017-07-20] MEDS ORDERED: MAGNESIUM HYDROXIDE 30 ML ORAL.SUSP PO PRN (15:33)
[2017-07-20] MEDS ORDERED: ACETAMINOPHEN 1,000 MG/100 ML BOTTLE IV PRN (15:33)
[2017-07-20] MEDS ORDERED: MAGNESIUM SULFATE 2 GM/50 ML BAG IV PRN (15:33)
[2017-07-20] MEDS ORDERED: ACETAMINOPHEN 325 MG TABLET PO PRN (15:33)
[2017-07-20] MEDS ORDERED: ONDANSETRON 4 MG/2 ML VIAL IV PRN (15:33)
[2017-07-20] MEDS ORDERED: guaiFENesin/CODEINE 10 ML UDC PO PRN (15:33)
[2017-07-20] MEDS ORDERED: ATORVASTATIN 20 MG TABLET PO ONE (16:00)
[2017-07-20] MEDS: 0.9 % SODIUM CHLORIDE 10 ML SYRINGE IV SCH ×2 (16:00→21:16)
[2017-07-20] MEDS: THIAMINE 100 MG in 0.9 % SODIUM CHLORIDE 50 ML IV SCH (16:09)
[2017-07-20] MEDS: 0.9 % SODIUM CHLORIDE 1,000 ML IV SCH (16:09)
[2017-07-20] MEDS ORDERED: METOPROLOL TARTRATE 25 MG TABLET PO SCH (21:00)
[2017-07-20] MEDS ORDERED: traZODone HCL 50 MG TABLET PO PRN (21:00)
[2017-07-20] MEDS: METOPROLOL TARTRATE 25 MG TABLET PO SCH (21:15)
[2017-07-20] MEDS: CYANOCOBALAMIN (VITAMIN B-12) 500 MCG TABLET PO SCH (21:15)
[2017-07-20] MEDS: DOCUSATE SODIUM 100 MG CAPSULE PO SCH ×2 (21:15→21:21)
[2017-07-20] MEDS: DABIGATRAN ETEXILATE MESYLATE 75 MG CAPSULE PO SCH (21:15)
[2017-07-20] MEDS: SENNOSIDES/DOCUSATE SODIUM 1 TAB TABLET PO SCH ×2 (21:15→21:20)
[2017-07-21 06:00] LABS: Mean Cell Volume 91.1 fL (80.0-100.0); Mean Corpuscular HGB Conc 33.7 g/dL (31.0-36.0); Mean Corpuscular Hemoglobin 30.7 pg (26.0-34.0); Platelet Count 150 K/mcL (140-440); RBC 5.07 M/mcL (4.50-5.90); Red Cell Distribution Width 13.8 % (11.5-14.5)
[2017-07-21] MEDS: 0.9 % SODIUM CHLORIDE 10 ML SYRINGE IV SCH ×2 (06:10→13:26)
[2017-07-21 06:14] LABS: ALT/SGPT 8 U/l (0-40); Albumin 3.5 gm/dL (3.2-5.2); Albumin/Globulin Ratio 1.6 (1.0-2.3); Alkaline Phosphatase 49 U/L (39-117); Bilirubin,Direct < 0.2 mg/dL (0.0-0.3); Blood Urea Nitrogen 10 mg/dl (8-23); Gamma Glutamyl Transpeptidase 17 U/L (8-61); Magnesium 1.9 mg/dL (1.6-2.5); Uric Acid 6.1 mg/dL (2.5-8.0)
[2017-07-21 06:54] LABS: Eosinophils % (Manual) 1 % (0-7); Lymphocytes % 15 % (15-49); Monocytes % (Manual) 6 % (1-12); Platelet Estimate NORMAL (NORMAL); RBC Morphology ABNORM (NORMAL); Segmented Neutrophils % 78 % (38-78)
[2017-07-21] MEDS ORDERED: MULTIVIT,THER IRON,CA,FA & MIN 1 TABLET PO SCH (09:00)
[2017-07-21] MEDS ORDERED: ATORVASTATIN 20 MG TABLET PO SCH (09:00)
[2017-07-21] MEDS: THIAMINE 100 MG in 0.9 % SODIUM CHLORIDE 50 ML IV SCH (09:25)
[2017-07-21] MEDS: METOPROLOL TARTRATE 25 MG TABLET PO SCH (09:26)
[2017-07-21] MEDS: DABIGATRAN ETEXILATE MESYLATE 75 MG CAPSULE PO SCH (09:26)
[2017-07-21] MEDS: CYANOCOBALAMIN (VITAMIN B-12) 500 MCG TABLET PO SCH (09:26)
[2017-07-21] MEDS: DOCUSATE SODIUM 100 MG CAPSULE PO SCH ×2 (09:26→10:11)
--- NOTE | 2017-07-21 11:38 | XRay Report ---
CLINICAL INFORMATION: Fever COMPARISON: None. FINDINGS:The heart size, mediastinum and pulmonary vessels are unremarkable. The lungs are clear. There are no effusions. The bones and soft tissues are within normal limits. IMPRESSION: Normal chest. Interpreted and Authenticated by: Toni Fitzpatrick 07/21/17
--- NOTE | 2017-07-21 11:55 | Magnetic Resonance Report ---
CLINICAL INFORMATION: Blurry vision. History of CVA. Question acute CVA COMPARISON: 02/04/2015 brain MRI - [facility] TECHNIQUE:Sagittal T1 FLAIR, axial T1 FLAIR, T2 FLAIR propeller, T2 propeller, gradient, diffusion, ADC and coronal T2 weighted images were acquired. FINDINGS: The ventricles, sulci, fissures and cisterns are symmetrically enlarged compatible with moderate atrophy. This shows slight progression. There are no extra-axial fluid collections or masses appreciated. A large remote cortical-based infarct in the right occipital lobe is noted. There are multiple small linear infarcts in both inferior cerebellar hemispheres. A tiny acute nonhemorrhagic lacunar infarct seen in the inferior left cerebellum. No other evidence of acute infarct. Moderate chronic ischemic changes noted in the cerebral white matter which show mild progression from previous study. Scattered chronic ischemic foci are also seen in the central angel.. There is no intracerebral hemorrhage, mass effect or edema The signal void within the intracerebral arteries, extra-axial cranial nerves, pituitary and orbits are normal. There is a 17 mm polyp in the inferior left maxillary sinus - as previously seen. Other paranasal sinuses are clear IMPRESSION: 1. Tiny (2 mm) acute nonhemorrhagic lacunar infarct in the inferior left cerebellum. No other acute findings 2. Large remote cortical-based infarct in the right occipital lobe - also noted on the 2015 study. 3. Multiple small remote lacunar infarcts along both inferior cerebellar hemisphere 4. Moderate atrophy and chronic ischemic changes in deep cerebral white matter showing only slight progression. Scattered chronic ischemic foci in the central angel Interpreted and Authenticated by: Toni Fitzpatrick 07/21/17
--- NOTE | 2017-07-21 13:13 | Discharge Summary ---
Medical - DS: Prov Patient information: Note initiated : 07/21/17 at 1:09 pm Service Date, if different from initiated Date: [] Patient: Aubrey Donohue 77 y/o M admitted on 07/20/17 for Stroke Symptoms/ Visual Disturbance, CVA. Chief Complaint: [] Date of admission: 07/20/17 14:50 Discharge date: 07/21/17 Primary care physician: Amrit Parker Admitting clinician: Cruzito Apple Discharging clinician: Gaurav Osuna Medical - DS: Meds - Discharge Medications Active and Home Medications: Home Medications cholecalciferol (vitamin D3) 1,000 unit capsule 1,000 unit PO QDAY cap [History Confirmed 07/20/17 Last Taken 07/19/17 08:00] cyanocobalamin (vit B-12) 1,000 mcg tablet 1,000 mcg PO QDAY tab 07/09/15 [ History Confirmed 07/20/17 Last Taken 07/19/17 09:00] diphenhydramine 25 mg capsule 50 mg PO QHS PRN cap 07/09/15 [History Confirmed 07/20/17 Last Taken Unknown] multivitamin tablet 1 tab PO QDAY tab 07/09/15 [History Confirmed 07/20/17 Last Taken 07/13/17] psyllium husk 3.4 gram/5.4 gram oral powder 1 packet PO PRN PRN 03/25/17 [ History Confirmed 07/20/17 Last Taken Unknown] dabigatran etexilate 150 mg capsule 150 mg PO BID 90 Days 07/16/17 [Rx Confirmed 07/20/17 Last Taken 07/18/17 21:00] Budesonide [Entocort EC] 3 mg PO DAILY 07/20/17 [History Confirmed 07/20/17 Last Taken 07/19/17 20:00] Donepezil HCl [Aricept] 10 mg PO HS 07/20/17 [History Confirmed 07/20/17 Last Taken 07/19/17 20:00] Memantine HCl 10 mg PO BID 07/20/17 [History Confirmed 07/20/17 Last Taken 07/19 20:00] Metoprolol Tartrate [Lopressor] 25 mg PO BID 07/20/17 [History Confirmed Last Taken 07/19/17 09:00] Medical - DS: Hosp Hospital course: Mr. Donohue is a 77 year old Male with h/o CVA in 2015, with heminopsia, presented to the [facility] ER with his son with sudden onset vision change and abnormal balance which started 9AM while reading his news paper. The patient denies any other symptoms, Given that he had noticed similar symptoms in the past he was concerned for a CVA. Stroke code was activated and the patient underwent CT head which was neg, CTA head and neck was negative. The Tele stroke neurologist advised monitoring the patient overnight and an MRI and continuation of statin and pradaxa MRI was done which showed that the patient has 2mm acute CVA in the left cerebellum, the patient has some visual issues which are improving but no other new deficit. The patient has history of Afib and CVA and is on anticoagulation with rivaroxaban. He follows with Dr Erwin (neurologist). Patients Echo was neg for any clot or thrombus this visit. The patient will receive outpatient/ home rehab. The patient will be discharged home with follow up with his PCP, and Neurologist for further management. The patient had missed dosing for around 1.5 to 2 days of his rivaroxaban as he had run out of his medication. Its likely that this is the etiology of his symptom. Patient and his son were educated on the need to be compliant with medication. Discharge diagnosis: acute cva - Time Spent with Patient Total time spent providing and/or coordinating discharge services: Less than 30 minutes Medical - DS: Exam - Constitutional Vitals: Vital Signs Temp Pulse Pulse Resp BP BP Pulse Ox 07/21/17 12:12 16 114/88 94 07/21/17 12:00 98.3 F 60 18 114/88 94 07/21/17 09:55 98.2 F 16 189/85 94 07/21/17 04:45 184/73 07/21/17 04:41 99.1 F H 07/21/17 04:00 18 184/73 92 07/21/17 00:15 174/86 07/21/17 00:00 99.6 F H 18 174/86 96 07/20/17 19:49 178/81 07/20/17 19:45 98.1 F 20 178/81 96 07/20/17 18:02 186/82 07/20/17 17:51 185/76 07/20/17 17:33 196/88 07/20/17 16:02 178/88 07/20/17 15:48 156/80 07/20/17 15:33 98.2 F 20 178/88 96 07/20/17 15:32 147/86 07/20/17 15:16 186/83 07/20/17 15:12 79 177/87 95 07/20/17 15:01 174/85 07/20/17 15:00 98.1 F 20 177/87 94 Intake and Output 07/20/17 07/21/17 07/21/17 21:59 05:59 13:59 Intake Total 460 / 460 720 / 720 Output Total 500 / 950 1100 / 1100 775 / 775 Balance -449 / -899 -640 / -640 -55 / -55 Intake: IV Vitamin B1 100 mg In Sodium Chloride 0.9% 50 ml @ 50 mls/hr IV DAILY [facility] Rx#:[id number] Oral 460 / 460 720 / 720 Output: Void Amount 500 / 950 1100 / 1100 775 / 775 Other: Meal Breakfast Percent of Meal Consumed 100% # Voids 1 1 # Bowel Movements 0 Weight 175 lb 8 oz Additional comments: Constitutional; Afebrile, cooperative, alert, not in distress. Eyes- No icterus, , No periorbital swelling Ears- Ext ear normal, hearing normal to conversation. Neck- Midline trachea, supple Respiratory system: Air Entry equal on both sides, No crackles or wheezing, no rhonchi. CVS- Rate rhythm irregular, S1,S2 heard, no gallop, no rub. Abdomen- Soft nontender abdomen, no organomegaly, no tenderness, no guarding or rigidity, TOUCH UP CARVER- AOOx3, moving all extremities, no gross focal deficit noted. Medical - DS: Data Procedures and tests throughout hospitalization: Head CT IMPRESSION: No evidence of hemorrhage, edema or other acute intracerebral finding Large old cortical-based infarct right occipital lobe. Small old cortical-based infarct in the right frontal lobe Mild atrophy and chronic ischemic changes in the deep white matter - as expected for age.. CTA head IMPRESSION: Normal CTA neck MPRESSION: 1. Thoracic aortic arch, brachycephalic, both subclavian, all carotid and vertebral arteries are widely patent. Left vertebral artery is dominant 2. 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 Tiny (2 mm) acute nonhemorrhagic lacunar infarct in the inferior left cerebellum. No other acute findings 2. Large remote cortical-based infarct in the right occipital lobe - also noted on the 2015 study. 3. Multiple small remote lacunar infarcts along both inferior cerebellar hemisphere 4. Moderate atrophy and chronic ischemic changes in deep cerebral white matter showing only slight progression. Scattered chronic ischemic foci in the central angel Echo LV normal in size mild lvh lvef 60-65 la is mildly dilated mild post mitral annular calcification mild AR sclerotic aoritc root/ calcification. Labs on day of discharge: Labs from last 24 hours 07/21/17 07/21/17 04:22 04:22 WBC 10.6 RBC 5.07 Hgb 15.6 Hct 46.2 MCV 91.1 MCH 30.7 MCHC 33.7 RDW 13.8 Plt Count 150 MPV 8.9 Total Counted 100 Seg Neutrophils % 78 Band Neutrophils % Not Reportable Lymphocytes % 15 Monocytes % (Manual) 6 Eosinophils % (Manual) 1 Platelet Estimate Normal RBC Morphology Abnorm A RBC Fragments Few A Sodium 143 Potassium 3.3 Chloride 106 Carbon Dioxide 24 Anion Gap 13.0 BUN 10 Creatinine 0.9 GFR Calculation 83 Glucose 91 Uric Acid 6.1 Calcium 8.3 L Phosphorus 2.7 Magnesium 1.9 Total Bilirubin 0.4 Direct Bilirubin < 0.2 GGT 17 AST 12 ALT 8 Alkaline Phosphatase 49 Lactate Dehydrogenase 235 Total Protein 5.7 L Albumin 3.5 Globulin 2.2 Albumin/Globulin Ratio 1.6 Triglycerides 90 Medical - DS: A/P - Patient/Caregiver Discharge Instructions Activity: as per physical therapy, increase activity as tolerated Diet: Cardiac Additional Instructions: Follow up with PCP in 7 days\ Follow up with Neurologist as scheduled NO changes in your medications has been done Take your blood thinner rivaroxaban as before, Go to the ER if any new concerning symptom - Follow up Plan Follow up with: Amrit Parker MD [Primary Care Provider] - 07/28/17 11:30 am (Check in at 11: 15 for an 11:30 appt.) Breezy Erwin MD [Physician] - Disposition: Home Health Service Prognosis: Fair Rehab Potential: Fair I certify that the patient requires SNF services: No Overall status at discharge: patient is progressing back to baseline Medical - DS: Qual - VTE Deep Vein Thrombosis/Pulmonary Embolism Present on Admission: No
[2017-07-21] MEDS: 0.9 % SODIUM CHLORIDE 1,000 ML IV SCH (13:26)
== END 2017-07-21 14:35 | disposition home health service (06) ==
LOC: ED 10:40 → ICU 10:40
PROVIDERS: ADMIT Internal Medicine; ATTEND Internal Medicine